=== PATIENT | male | born 1970 | race American Indian/Alaskan Native ===

== ENCOUNTER 2017-01-15 20:51 | Inpatient (IN) | payer MEDICAID ==
--- NOTE | 2017-01-15 21:40 | C.PDOC ---
History Of Present Illness Patient is a 46 year old male who presents to the ER with a complaint of feeling suicidal. Patient denies physical complaints at this time. Chief Complaint (Nursing): Psychiatric Evaluation History Per: Patient History/Exam Limitations: no limitations Onset/Duration Of Symptoms: Hrs Current Symptoms Are (Timing): Still Present Suicide/Self Injury Attempted (Context): None Modifying Factor(s): None Associated Symptoms: Depression, Suicidal Thoughts. denies: Suicidal Plan Involuntary Hold By: None Recent travel outside of the [place]: No Past Medical History Reviewed: Historical Data, Nursing Documentation, Vital Signs Vital Signs: Last Vital Signs Temp 98.8 F 01/15/17 21:15 Pulse 80 01/15/17 21:15 Resp 14 01/15/17 21:15 BP 124/78 01/15/17 21:15 Pulse Ox - Medical History PMH: Asthma, CHF, HTN Surgical History: No Surg Hx Family History: States: Unknown Family Hx - Social History Hx Alcohol Use: No Hx Substance Use: Yes - Immunization History Hx Tetanus Toxoid Vaccination: No Hx Influenza Vaccination: No Hx Pneumococcal Vaccination: No Review Of Systems Constitutional: Negative for: Fever, Chills Gastrointestinal: Negative for: Nausea, Vomiting, Diarrhea Psych: Positive for: Depression, Suicidal ideation Physical Exam - Physical Exam Appears: Non-toxic, Other (In tears) Skin: Normal Color, Warm, Dry Head: Atraumatic, Normacephalic Eye(s): bilateral: Normal Inspection, EOMI Oral Mucosa: Moist Chest: Symmetrical, No Tenderness Cardiovascular: Rhythm Regular, No Murmur Respiratory: Normal Breath Sounds, No Rales, No Rhonchi, No Wheezing Gastrointestinal/Abdominal: Soft, No Tenderness Neurological/Psych: Oriented x3, Normal Speech, Normal Cognition ED Course And Treatment - Laboratory Results Result Diagrams: 01/15/17 22:19 01/15/17 22:19 ECG: Interpreted By Me, Viewed By Me ECG Rhythm: Sinus Rhythm ECG Interpretation: No Acute Changes, Abnormal Interpretation Of ECG: NSR, prolonged QT interval Rate From EC - Radiology CXR: Interpreted by Me CXR Interpretation: Yes: No Acute Disease. No: Infiltrates, Cardiomegaly (no acute pathology) Progress Note: EKG, blood work, CXR and urinalysis ordered. Disposition Discussed With : Erik Gilmore Doctor Will See Patient In The: Hospital Counseled Patient/Family Regarding: Diagnosis - Disposition Disposition: HOSPITALIZED Disposition Time: 00:27 Condition: STABLE - Clinical Impression Clinical Impression: Depression, Heroin abuse - Scribe Statement The provider has reviewed the documentation as recorded by the Scribpatrick Jones All medical record entries made by the Sandrineibe were at my direction and personally dictated by me. I have reviewed the chart and agree that the record accurately reflects my personal performance of the history, physical exam, medical decision making, and the department course for this patient. I have also personally directed, reviewed, and agree with the discharge instructions and disposition.
[2017-01-15 22:24] LABS: BASO % 0.2 % (0.0-2.0); EOS # 0.2 K/uL (0.0-0.7); EOS % 1.2 % (0.0-4.0); HEMATOCRIT 39.3 % (35.0-51.0); LYMPH % 35.2 % (20.0-40.0); MEAN CELL VOLUME 90.5 fL (80.0-94.0); MEAN CORPUSCULAR HGB CONC 33.2 g/dL (33.0-37.0); MEAN PLATELET VOLUME 9.2 fL (7.2-11.7); MONO # 1.2 K/uL (0.0-0.8); MONO % 5.9 % (0.0-10.0); RED CELL DISTRIBUTION WIDTH 13.7 % (11.5-14.5); WHITE BLOOD COUNT 19.9 K/uL (4.8-10.8)
[2017-01-15 22:26] LABS: RBC URINE < 1 /hpf (0-3); URINE BILIRUBIN NEGATIVE (NEGATIVE); URINE COLOR Yellow (YELLOW); URINE GLUCOSE (UA) NORMAL (Normal); URINE KETONE NEGATIVE (NEGATIVE); URINE LEUKOCYTE ESTERASE NEG Leu/uL (Negative); URINE PROTEIN NEGATIVE (NEGATIVE); WBC URINE 4 /hpf (0-5)
[2017-01-15 22:29] LABS: URINE BLOOD NEGATIVE (NEGATIVE)
[2017-01-15 22:32] LABS: CHLORIDE 97 mmol/L (98-107)
[2017-01-15 22:33] LABS: POTASSIUM 3.1 mmol/L (3.6-5.2); SODIUM 136 mmol/L (132-148)
[2017-01-15 22:35] LABS: ALB/GLOB RATIO 1.2 (1.0-2.1); ALKALINE PHOSPHATASE 66 U/L (38-126); AST/SGOT 34 U/L (17-59); BILIRUBIN,TOTAL 0.5 mg/dL (0.2-1.3); BLOOD UREA NITROGEN 12 mg/dL (9-20); CARBON DIOXIDE 26 mmol/L (22-30); GFR AFRICAN-AMERICAN > 60; GLUCOSE,RANDOM 115 mg/dL (75-110); TOTAL PROTEIN 7.5 g/dL (6.3-8.3)
[2017-01-15] MEDS ORDERED: Potassium Chloride 20 mEq/15 ml LIQ UD PO STA (22:35)
[2017-01-15 22:36] LABS: ALCOHOL SERUM < 10 mg/dl (0-10); ALT/SGPT 51 U/L (21-72); CALCIUM 8.8 mg/dl (8.6-10.4)
[2017-01-15] MEDS ORDERED: Potassium Chloride 20 mEq ER Tab PO ONE (23:13)
[2017-01-16] MEDS ORDERED: Albuterol HFA 90 mcg/actuation (8 g) INH PRN (05:33)
[2017-01-16] MEDS ORDERED: Potassium Chloride 20 mEq ER Tab PO ONE (11:46)
--- NOTE | 2017-01-16 11:51 | CP.PCM.CON ---
<Tonya Santo - Last Filed: 01/16/17 13:14> History of Present Illness - History of Present Illness History of Present Illness: Medicine Consult note for Dr. Sotelo Reason for consult: Vomiting CC: I can't stop vomiting HPI: Patient is a 46 year old AA male PMHx of HTN, DM2, CHF, Hypercholesterolemia who presented to the ED on 01/15 with suicidal ideations. Patient reported feeling suicidal as he was unable to satisfy his . He also complained of nausea and vomiting over the past 2 days. He stated he has been vomiting mostly yellow liquid and food for the past 2 days ~4times/day and when [facility] he has been having bilious nonbloody emesis all morning ~4 to 5 times. He denies any diarrhea but also reports he has been constipated for 2 days. He is complaining of intermittent abdominal pain in the middle of his abdomen that also started 2 days ago. He describes it as dull and cramping. He also complaints of some lightheadedness, chills, diaphoresis, and a burning pain in his Right thigh that comes and goes. Patient denied any acute chest pain, palpitations, SOB, cough, swelling of his legs b/l, sick contacts, recent travel. Patient reported that he was using methadone up to 150mg 1 months ago and he stopped it suddenly without tapering it off as he misunderstood his dental technologist's recommendations as he was having prolonged QT interval. Patient reported that he started taking 100mg methadone again 1 week ago and was also snorting 10bags/day of heroin. His last use of heroin and methadone was the day of admission where he snorted 6 bags heroin. Patient states he has been using a combination fo methadone and heroin for months. Patient also disclosed he has been following Dr. Toro in [facility] [place] for his CHF. He states in Jul 2015 he was unable to even complete a stress test due to "blocked arteries" and he had a cardiac cath done and a stent placed in January 2016. PMD: Dr. Hernandez Wire Lather: Dr. 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 absent: Fever, Headache - EENT Eyes: As Per HPI. absent: Change in Vision Ears: As Per HPI. absent: Dizziness Nose/Mouth/Throat: As Per HPI. absent: Nasal Congestion, Sore Throat - Cardiovascular Cardiovascular: As Per HPI. absent: Chest Pain, Dyspnea, Edema, Leg Edema, Palpitations - Respiratory Respiratory: As Per HPI. absent: Cough, Hemoptysis, Dyspnea on Exertion, Wheezing, Chest Congestion - Gastrointestinal Gastrointestinal: As Per HPI, Abdominal Pain, Constipation, Heartburn, Nausea, Vomiting. absent: Coffee Ground Emesis, Diarrhea, Dysphagia, Hematemesis - Genitourinary Genitourinary: As Per HPI. absent: Dysuria, Pyuria, Nocturia - Musculoskeletal Musculoskeletal: As Per HPI. absent: Back Pain, Numbness, Tingling - Integumentary Integumentary: As Per HPI. absent: Dry Skin, Rash - Neurological Neurological: As Per HPI. absent: Numbness, Focal Weakness, Headaches, Tingling - Psychiatric Psychiatric: As Per HPI, Anxiety, Depression, Suicidal Ideation. absent: Hallucinations, Homicidal Ideation, Visual Hallucinations - Endocrine Endocrine: As Per HPI. absent: Palpitations, Polydipsia, Polyphagia, Polyuria - Hematologic/Lymphatic Hematologic: As Per HPI. absent: Easy Bleeding, Easy Bruising, Lymphadenopathy Past Patient History - Infectious Disease Hx of Infectious Diseases: None - Past Social History Smoking Status: Heavy Smoker > 10 Cigarettes Daily - CARDIAC Hx Congestive Heart Failure: Yes Hx Hypertension: Yes - PULMONARY Hx Asthma: Yes - NEUROLOGICAL HX Cerebrovascular Accident: No Hx Seizures: No - ENDOCRINE/METABOLIC Hx Diabetes Mellitus Type 1: Yes - HEMATOLOGICAL/ONCOLOGICAL Hx Cancer: No Hx Human Immunodeficiency Virus (HIV): No - GENITOURINARY/GYNECOLOGICAL Hx Sexually Transmitted Disorders: No - PSYCHIATRIC Hx Substance Use: Yes - SURGICAL HISTORY Hx Surgeries: No Meds Allergies/Adverse Reactions: Allergies Allergy/AdvReac Type Severity Reaction Status Date / Time cheese Allergy Verified 01/15/17 21:26 shrimp Allergy Verified 01/15/17 21:26 - Medications Medications: Current Medications Albuterol (Ventolin Hfa 90 Mcg/Actuation (8 G)) 1 puff INH RQ6 PRN PRN Reason: Shortness of Breath Ondansetron HCl (Zofran Tab) 4 mg PO Q6H PRN PRN Reason: Nausea/Vomiting Last Admin: 01/16/17 08:19 Dose: 4 mg Trazodone HCl (Desyrel) 100 mg PO HS PRN PRN Reason: Insomnia Last Admin: 01/16/17 02:01 Dose: 100 mg Physical Exam - Constitutional Appears: In Acute Distress - Head Exam Head Exam: ATRAUMATIC, NORMAL INSPECTION, NORMOCEPHALIC - Eye Exam Eye Exam: EOMI, Normal appearance, PERRL. absent: Conjunctival injection, Scleral icterus Pupil Exam: NORMAL ACCOMODATION - ENT Exam ENT Exam: Mucous Membranes Dry - Neck Exam Neck exam: Positive for: Full Rom, Normal Inspection. Negative for: Tenderness - Respiratory Exam Respiratory Exam: Clear to Auscultation Bilateral, NORMAL BREATHING PATTERN. absent: Accessory Muscle Use, Rales, Rhonchi, Wheezes, Respiratory Distress - Cardiovascular Exam Cardiovascular Exam: REGULAR RHYTHM, RRR, +S1, +S2. absent: Systolic Murmur - GI/Abdominal Exam GI & Abdominal Exam: Normal Bowel Sounds, Soft. absent: Firm, Guarding, Rebound , Rigid, Tenderness Additional comments: bilious and yellow emesis noted in bedside marsh - Extremities Exam Extremities exam: Positive for: normal capillary refill, normal inspection, pedal pulses present. Negative for: pedal edema, tenderness - Back Exam Back exam: NORMAL INSPECTION. absent: rash noted, tenderness - Neurological Exam Neurological exam: Alert, Oriented x3 - Psychiatric Exam Psychiatric exam: Anxious, Depressed - Skin Skin Exam: Diaphoretic, Intact, Normal Color, Warm Results - Vital Signs Recent Vital Signs: Last Vital Signs Temp 98.6 F 01/16/17 11:37 Pulse 72 01/16/17 11:37 Resp 18 01/16/17 11:37 BP 114/66 01/16/17 11:37 Pulse Ox 99 01/16/17 11:37 - Labs Result Diagrams: 01/15/17 22:19 01/16/17 11:42 Labs: Laboratory Results - last 24 hr 01/16/17 08:00 POC Glucose (mg/dL) 124 H Assessment & Plan - Assessment and Plan (Free Text) Assessment: 46 year old AA male PMHx of HTN, DM2, CHF, Hypercholesterolemia who presented to the ED on 01/15 with suicidal ideations. Medicine consult for intractable vomiting Plan: Intractable nausea and vomiting -Likely secondary to methadone/heroin withdrawal -NPO except ice chips -Protonix 40mg IVP daily -Zofran 4mg IVP Q6H PRN nausea/vomiting -D5NS @ 100cc/hr -amylase: 58 -lipase: 59 -f/u x-ray abdomen Prolonged QT interval -seen on EKG on admission -likely secondary to methadone -Monitor with daily EKG -Dr. Almaraz consulted cardiology Hypokalemia -K+ on admission 3.1 -repleted -monitor Leukocytosis -WBC 19.9 on admission -likely reactionary CHF -f/u Echo -BNP: 103 -monitor Is and Os -measure daily weights -Dr. Almaraz consulted cardiology HTN -home meds on hold as patient is vomiting: Lisinopril 20mg po daily, Toprol xl 100mg 2 tab bid -home med on hold as patient at risk for hematemesis secondary to MW tears secondary to intractable vomiting: ASA 81mg po daily -BP currently controlled -Monitor -f/u TSH and free T4 DM2 -home meds metformin on hold -Accucheck ACHS -RISS low dose -D5NS @ 100cc/hr -f/u HgbA1c Hypercholesterolemia -home med on hold: Atorvastatin 40mg po hs -hold Crestor 10mg po hs until patient stops vomiting -f/u Lipid panel Opioid and methadone abuse -Managed as per psych -Trazodone 100mg po hs PPX -SCDs -NPO except ice chips -Protonix 40mg ivp daily -hold VTE ppx as patient is at risk of hematemesis secondary to MW tears secondary to intractable vomiting -1:1 suicide watch -monitor Is and Os -measure daily weights Plan discussed with Dr. Ashleigh Santo PGY1 <Estephania Sotelo V - Last Filed: 01/16/17 19:45> Meds - Medications Medications: Current Medications Dextrose/Sodium Chloride (Dextrose 5%/0.9% Ns 1000 Ml) 1,000 mls @ 100 mls/hr IV .Q10H ONE Stop: 01/16/17 22:29 Last Admin: 01/16/17 17:00 Dose: 100 mls/hr Insulin Aspart (Novolog) 0 unit SC ACHS SAY PRN Reason: Protocol Ondansetron HCl (Zofran Inj) 4 mg IVP Q6H PRN PRN Reason: Nausea/Vomiting Pantoprazole Sodium (Protonix Inj) 40 mg IVP DAILY SAY Trazodone HCl (Desyrel) 100 mg PO HS PRN PRN Reason: Insomnia Last Admin: 01/16/17 02:01 Dose: 100 mg Results - Vital Signs Recent Vital Signs: Last Vital Signs Temp 97.9 F 01/16/17 15:06 Pulse 65 01/16/17 15:06 Resp 20 01/16/17 15:06 BP 172/93 H 01/16/17 15:06 Pulse Ox 96 01/16/17 15:06 - Labs Result Diagrams: 01/15/17 22:19 01/16/17 11:42 Labs: Laboratory Results - last 24 hr 01/16/17 01/16/17 01/16/17 08:00 11:42 12:06 Sodium 138 Potassium 3.9 Chloride 98 Carbon Dioxide 27 Anion Gap 16 BUN 10 Creatinine 1.0 Est GFR ( Amer) > 60 Est GFR (Non-Af Amer) > 60 POC Glucose (mg/dL) 124 H 132 H Random Glucose 145 H Calcium 9.2 Phosphorus 3.0 Magnesium 2.2 Total Bilirubin 0.9 AST 36 ALT 52 Alkaline Phosphatase 81 Total Protein 7.8 Albumin 4.3 Globulin 3.5 Albumin/Globulin Ratio 1.2 Amylase 58 Lipase 59 01/16/17 16:38 Sodium Potassium Chloride Carbon Dioxide Anion Gap BUN Creatinine Est GFR ( Amer) Est GFR (Non-Af Amer) POC Glucose (mg/dL) 161 H Random Glucose Calcium Phosphorus Magnesium Total Bilirubin AST ALT Alkaline Phosphatase Total Protein Albumin Globulin Albumin/Globulin Ratio Amylase Lipase Attending/Attestation - Attestation I have personally seen and examined this patient.: Yes I have fully participated in the care of the patient.: Yes I have reviewed all pertinent clinical information: Yes Notes (Text): Patient seen, examined and case discussed with day-time resident. Medicine consulted for intractable nausea and vomiting. Patient reports significant methadone use coinciding with his heroin use. Patient reports he has been vomitting multiple times since last night. Patient reports use to go to a methadone clinic maintenance but quit about a month ago cold turkey, because he was told by his heart doctor that is affecting his heart. Patient is heavy heroin user and on high methadone use. Patient denies chest pain, denies palpitations, denies shortness of breathe, associates abdominal pain only with vomitting, nonbloody, and denies change in stool. Patient has green-yellow vomitus at bedside to support. Patient transferred to telemetry from [facility], will monitor on telemetry and try control nausea and vomitting in light of withdrawal. Hold PO meds; if patient continues to have nausea, may need NGT tube. Assessment/Plan (with Clarifications) 1) Intractable nausea and vomiting -Likely secondary to methadone/heroin withdrawal -NPO except ice chips -Protonix 40mg IVP daily -Zofran 4mg IVP Q6H PRN nausea/vomiting -D51/2NS @ 50cc/hr -Ordered for amylase: 58 and lipase: 59 -f/u x-ray abdomen pending 2) Prolonged QT interval -seen on EKG on admission -likely secondary to methadone -Monitor with daily EKG -Dr. Almaraz consulted cardiology -Transferred to telemetry to monitor prolonged QT and further arrhythmias 3) Hypokalemia -K+ on admission 3.1 -Mg2+ within normal limits -monitor 4) Leukocytosis -WBC 19.9 on admission -Will repeat CBC tomorrow -Post-inflammatory vs dehydration 5) Chronic Diastolic CHF -f/u Echo -BNP: 103 -monitor Is and Os -measure daily weights -Dr. Almaraz consulted cardiology -Iv fluids: D51/2NS 75cc/hr -Given patient is vomitting: held Lisinopril and Toprol Xl 100mg PO meds -If Abdominal xray negative, and continues to vomit may need NGT tube 6)Hypertension -home meds on hold as patient is vomiting: Lisinopril 20mg po daily, Toprol xl 100mg 2 tab bid -home med ASA; patient's hemoglobin is stable, patient is vomitting with associated abdominal pain, if improves, will continue tomorrow -IV fluids 75cc/hr -Hydralazine 10 IVP Q 6hour PRN SBP>160 -Monitor DM2 -home meds metformin on hold -Accucheck ACHS -RISS low dose -D51/2NS @ 50cc/hr -f/u HgbA1c Hypercholesterolemia -home med on hold: Atorvastatin 40mg po hs -hold Crestor 10mg po hs until patient vomitting subsides; may need NGT tube if persists -f/u Lipid panel Opioid and methadone abuse -Managed as per psych -Trazodone 100mg po hs PPX -SCDs -NPO except ice chips -Protonix 40mg ivp daily -hold VTE ppx; will reassess in the morning given patient is throwing up -Patient is ambulatory -1:1 suicide watch -monitor Is and Os -measure daily weights
[2017-01-16 12:05] LABS: CHLORIDE 98 mmol/L (98-107)
[2017-01-16 12:06] LABS: POTASSIUM 3.9 mmol/L (3.6-5.2); SODIUM 138 mmol/L (132-148)
[2017-01-16 12:08] LABS: ALB/GLOB RATIO 1.2 (1.0-2.1); ALKALINE PHOSPHATASE 81 U/L (38-126); AST/SGOT 36 U/L (17-59); BILIRUBIN,TOTAL 0.9 mg/dL (0.2-1.3); BLOOD UREA NITROGEN 10 mg/dL (9-20); CARBON DIOXIDE 27 mmol/L (22-30); GFR AFRICAN-AMERICAN > 60; TOTAL PROTEIN 7.8 g/dL (6.3-8.3)
[2017-01-16 12:09] LABS: ALT/SGPT 52 U/L (21-72); CALCIUM 9.2 mg/dl (8.6-10.4); GLUCOSE,RANDOM 145 mg/dL (75-110)
--- NOTE | 2017-01-16 12:23 | RAD ---
HISTORY: SOB COMPARISON: 06/22/2012. TECHNIQUE: Chest PA and lateral FINDINGS: LUNGS: No active pulmonary disease. PLEURA: No significant pleural effusion identified. No pneumothorax apparent. CARDIOVASCULAR: Normal. OSSEOUS STRUCTURES: No significant abnormalities. VISUALIZED UPPER ABDOMEN: Normal. OTHER FINDINGS: None. IMPRESSION: No active disease. No significant interval change compared to the prior examination(s).
[2017-01-16] MEDS ORDERED: Dextrose 5%/0.9% NS 1,000 ML IV ONE ×2 (12:30→19:36)
[2017-01-16 12:59] LABS: AMYLASE 58 U/L (30-110); MAGNESIUM 2.2 mg/dL (1.6-2.3)
[2017-01-16] MEDS: (Novolog) Insulin Aspart, Recombinant 100 u/ml 10 ml vial SC SCH ×2 (17:30→21:18)
[2017-01-16 18:07] VITALS: RESP 20
[2017-01-16] MEDS: Dextrose 5%/0.45% NS 1,000 ML IV SCH (21:23)
[2017-01-17] MEDS: (Novolog) Insulin Aspart, Recombinant 100 u/ml 10 ml vial SC SCH ×4 (08:00→22:11)
--- NOTE | 2017-01-17 08:04 | CP.PCM.PN ---
<HansaTonya - Last Filed: 01/17/17 12:27> Subjective - Date & Time of Evaluation Date of Evaluation: 01/17/17 Time of Evaluation: 07:15 - Subjective Subjective: PGY1 Medicine note for Dr. Sotelo Patient seen and examined at bedside. Patient reported feeling better this AM and wanted to eat. He reports only one episode of vomiting overnight which was more just frothy sputum rather than food contents as he had the day before. Patient denied headache, dizziness, chest pain, palpitations, SOB, cough, abd pain, nausea, vomiting, diarrhea, pain/swelling in his legs bilaterally. Patient reports he still has not had a BM and wants something to help him. As per nursing and 1:1 patient had no acute events overnight. Objective - Vital Signs/Intake and Output Vital Signs (last 24 hours): Temp Pulse Resp BP Pulse Ox 98.7 F 96 H 20 171/115 H 99 01/17/17 07:23 01/17/17 07:23 01/17/17 07:23 01/17/17 07:23 01/17/17 07:23 Intake and Output: 01/17/17 01/17/17 06:59 18:59 Intake Total 700 Balance 700 - Medications Medications: Current Medications Hydralazine HCl (Apresoline) 10 mg IVP Q6H PRN PRN Reason: Systolic Blood Pressure Last Admin: 01/17/17 05:42 Dose: 10 mg Dextrose/Sodium Chloride (Dextrose 5%/0.45% Ns 1000 Ml) 1,000 mls @ 50 mls/hr IV .Q20H [facility] Last Admin: 01/16/17 21:23 Dose: 50 mls/hr Insulin Aspart (Novolog) 0 unit SC ACHS SAY PRN Reason: Protocol Last Admin: 01/16/17 21:18 Dose: Not Given Ondansetron HCl (Zofran Inj) 4 mg IVP Q6H PRN PRN Reason: Nausea/Vomiting Last Admin: 01/16/17 21:20 Dose: 4 mg Pantoprazole Sodium (Protonix Inj) 40 mg IVP DAILY SAY Last Admin: 01/16/17 21:17 Dose: 40 mg Trazodone HCl (Desyrel) 100 mg PO HS PRN PRN Reason: Insomnia Last Admin: 01/16/17 21:33 Dose: 100 mg - Labs Labs: 01/16/17 11:42 - Constitutional Appears: Well, Non-toxic, No Acute Distress - Head Exam Head Exam: ATRAUMATIC, NORMAL INSPECTION, NORMOCEPHALIC - Eye Exam Eye Exam: EOMI, Normal appearance. absent: Conjunctival injection, Scleral icterus - ENT Exam ENT Exam: Mucous Membranes Dry - Neck Exam Neck Exam: Full ROM, Normal Inspection - Respiratory Exam Respiratory Exam: Decreased Breath Sounds (secondary to body habitus), Clear to Ausculation Bilateral, NORMAL BREATHING PATTERN. absent: Accessory Muscle Use, Rales, Rhonchi, Wheezes, Respiratory Distress - Cardiovascular Exam Cardiovascular Exam: REGULAR RHYTHM, RRR, +S1, +S2 - GI/Abdominal Exam GI & Abdominal Exam: Soft, Normal Bowel Sounds. absent: Distended, Firm, Guarding, Rigid, Tenderness - Extremities Exam Extremities Exam: Normal Capillary Refill, Normal Inspection. absent: Pedal Edema, Tenderness - Back Exam Back Exam: NORMAL INSPECTION. absent: rash noted, tenderness - Neurological Exam Neurological Exam: Alert, Awake, Oriented x3 - Psychiatric Exam Psychiatric exam: Anxious - Skin Skin Exam: Dry, Intact, Normal Color, Warm Assessment and Plan - Assessment and Plan (Free Text) Assessment: 46 year old AA male PMHx of HTN, DM2, CHF, Hypercholesterolemia who presented to the ED on 01/15 with suicidal ideations and later intractable vomiting Plan: 1) Intractable nausea and vomiting -Likely secondary to methadone/heroin withdrawal -Protonix 40mg IVP daily -Zofran 4mg IVP Q6H PRN nausea/vomiting -D51/2NS @ 50cc/hr -amylase: 58 and lipase: 59 -x-ray abdomen: unremarkable 2) Prolonged QT interval -seen on EKG on admission -likely secondary to methadone -Monitor with daily EKG -Dr. Almaraz consulted cardiology 3) Hypokalemia -K+ on admission 3.1 -monitor 4) Leukocytosis -WBC 19.9 on admission -16.6 this AM 01/17 -Post-inflammatory vs dehydration 5) Chronic Diastolic CHF -f/u Echo -BNP: 103 -monitor Is and Os -measure daily weights -Dr. Almaraz consulted cardiology -Iv fluids: D51/2NS 50cc/hr -Lisinopril 20mg po daily -Toprol Xl 100mg po daily 6)Hypertension -Lisinopril 20mg po daily -Toprol Xl 100mg po daily -ASA 81mg po daily -IV fluids 50cc/hr -Hydralazine 10 IVP Q 6hour PRN SBP>160 -TSH: 0.43 -Free T4: 0.7 -Monitor DM2 -home meds metformin on hold -Accucheck ACHS -RISS low dose -D51/2NS @ 50cc/hr -HgbA1c f/u Hypercholesterolemia -Crestor 10mg po hs -T -Cholesterol: 223 -LDL: 164 -HDL: 34 Opioid and methadone abuse -Managed as per psych -Trazodone 100mg po hs PPX -SCDs -Heart healthy mod consistent carb diet fluid restricted 1500cc -Protonix 40mg ivp daily -Heparin 5000U SC Q12 -Patient is ambulatory -1:1 suicide watch -monitor Is and Os -daily weights Plan discussed with Dr. Ashleigh Santo PGY1 <Estephania Sotelo V - Last Filed: 01/17/17 22:17> Objective - Vital Signs/Intake and Output Vital Signs (last 24 hours): Temp Pulse Resp BP Pulse Ox 98.7 F 80 20 171/115 H 99 01/17/17 07:23 01/17/17 07:30 01/17/17 07:23 01/17/17 07:23 01/17/17 07:23 Intake and Output: 01/17/17 01/17/17 06:59 18:59 Intake Total 700 Balance 700 - Medications Medications: Current Medications Aspirin (Aspirin Chewable) 81 mg PO DAILY [facility] Heparin Sodium (Porcine) (Heparin) 5,000 units SC Q12 [facility] Hydralazine HCl (Apresoline) 10 mg IVP Q6H PRN PRN Reason: Systolic Blood Pressure Last Admin: 01/17/17 05:42 Dose: 10 mg Dextrose/Sodium Chloride (Dextrose 5%/0.45% Ns 1000 Ml) 1,000 mls @ 50 mls/hr IV .Q20H [facility] Last Admin: 01/16/17 21:23 Dose: 50 mls/hr Insulin Aspart (Novolog) 0 unit SC ACHS [facility] PRN Reason: Protocol Last Admin: 01/17/17 08:00 Dose: 2 unit Lisinopril (Zestril) 20 mg PO DAILY [facility] Last Admin: 01/17/17 10:01 Dose: 20 mg Metoprolol Succinate (Toprol Xl) 100 mg PO DAILY [facility] Last Admin: 01/17/17 10:01 Dose: 100 mg Ondansetron HCl (Zofran Inj) 4 mg IVP Q6H PRN PRN Reason: Nausea/Vomiting Last Admin: 01/16/17 21:20 Dose: 4 mg Pantoprazole Sodium (Protonix Inj) 40 mg IVP DAILY [facility] Last Admin: 01/17/17 09:19 Dose: 40 mg Rosuvastatin Calcium (Crestor) 10 mg PO HS [facility] Trazodone HCl (Desyrel) 100 mg PO HS PRN PRN Reason: Insomnia Last Admin: 01/16/17 21:33 Dose: 100 mg - Labs Labs: 01/17/17 07:43 01/17/17 07:43 Attending/Attestation - Attestation I have personally seen and examined this patient.: Yes I have fully participated in the care of the patient.: Yes I have reviewed all pertinent clinical information, including history, physical exam and plan: Yes Notes (Text): Patient seen, examined, and case discussed with day-time resident. Patient seen this morning. Patient reports nausea and vomiting have improved compared to yesterday. Patient appears more comfortable. Patient denies acute distress. Patient has not had bowel movement today. Will restart patient's PO home medications since his nausea and vomiting have subsided. 1) Intractable nausea and vomiting -Likely secondary to methadone/heroin withdrawal -Protonix 40mg IVP daily -Zofran 4mg IVP Q6H PRN nausea/vomiting -D51/2NS @ 50cc/hr -amylase: 58 and lipase: 59 -x-ray abdomen: unremarkable 2) Prolonged QT interval -seen on EKG on admission -likely secondary to methadone -Monitor with daily EKG -Dr. Almaraz consulted cardiology 3) Hypokalemia -K+ on admission 3.4-->replete -monitor 4) Leukocytosis -WBC 19.9 on admission -16.6 this AM 01/17 -Post-inflammatory vs dehydration 5) Chronic Diastolic CHF -f/u Echo -BNP: 103 -monitor Is and Os -measure daily weights -Dr. Almaraz consulted cardiology -Iv fluids: D51/2NS 50cc/hr -Lisinopril 20mg po daily -Toprol Xl 100mg po daily -Aspirin 81mg PO daily -Crestor 10mg POqHS -Brilinta 90mg PO daily 6)Hypertension -Lisinopril 20mg po daily -Toprol Xl 100mg po daily -IV fluids 50cc/hr -Hydralazine 10 IVP Q 6hour PRN SBP>160 -monitor Blood pressure -influenced by withdrawal 7) DM2 -home meds metformin on hold -Accucheck ACHS -RISS low dose -HgbA1c f/u 8) Hypercholesterolemia -Crestor 10mg po hs -T -Cholesterol: 223 -LDL: 164 -HDL: 34 9) Opioid and methadone abuse -Managed as per psych -Trazodone 100mg po hs 10) PPX -SCDs -Heart healthy mod consistent carb diet fluid restricted 1500cc -Protonix 40mg ivp daily -Heparin 5000U SC Q12 -Patient is ambulatory -1:1 suicide watch -monitor Is and Os -daily weights
[2017-01-17 08:11] LABS: BASO # 0.1 K/uL (0.0-0.2); BASO % 0.6 % (0.0-2.0); CHLORIDE 94 mmol/L (98-107); EOS % 0.3 % (0.0-4.0); HEMATOCRIT 42.1 % (35.0-51.0); LYMPH # 3.7 K/uL (1.0-4.3); LYMPH % 22.3 % (20.0-40.0); MEAN CELL VOLUME 88.9 fL (80.0-94.0); MEAN CORPUSCULAR HEMOGLOBIN 30.3 pg (27.0-31.0); MEAN CORPUSCULAR HGB CONC 34.1 g/dL (33.0-37.0); MEAN PLATELET VOLUME 10.2 fL (7.2-11.7); MONO # 1.2 K/uL (0.0-0.8); MONO % 7.2 % (0.0-10.0); POTASSIUM 3.4 mmol/L (3.6-5.2); RED CELL DISTRIBUTION WIDTH 13.9 % (11.5-14.5); SODIUM 134 mmol/L (132-148); WHITE BLOOD COUNT 16.6 K/uL (4.8-10.8)
[2017-01-17 08:13] LABS: ALB/GLOB RATIO 1.2 (1.0-2.1); ALKALINE PHOSPHATASE 85 U/L (38-126); AST/SGOT 34 U/L (17-59); BLOOD UREA NITROGEN 8 mg/dL (9-20); CARBON DIOXIDE 26 mmol/L (22-30); CHOLESTEROL 223 mg/dL (0-199); GFR AFRICAN-AMERICAN > 60; TOTAL PROTEIN 8.2 g/dL (6.3-8.3)
[2017-01-17 08:14] LABS: ALT/SGPT 47 U/L (21-72); CALCIUM 9.3 mg/dl (8.6-10.4); GLUCOSE,RANDOM 141 mg/dL (75-110); MAGNESIUM 2.1 mg/dL (1.6-2.3); PHOSPHOROUS 3.3 mg/dL (2.5-4.5)
[2017-01-17 08:40] LABS: THYROID STIMULATING HORMONE 0.43 mIU/L (0.46-4.68)
--- NOTE | 2017-01-17 09:19 | RAD ---
HISTORY: pain, nausea, vomiting COMPARISON: No prior. FINDINGS: BOWEL: Normal. No obstruction. No free air. Constipation without fecal impaction or obstruction. BONES: Normal. OTHER FINDINGS: None. IMPRESSION: No acute findings related to/accounting for the clinical presentation.
[2017-01-17] MEDS: Metoprolol Succinate 100 mg XL Tab PO SCH (10:01)
[2017-01-17] MEDS: Dextrose 5%/0.45% NS 1,000 ML IV SCH (16:00)
--- NOTE | 2017-01-17 18:03 | PCM.PSYCH ---
Initial Psychiatric Evaluation - Initial Psychiatric Evaluation Type of Admission: Voluntary Legal Status: Capacity Chief Complaint (in patient's own words): I was suicidal, wanted to kill myself by overdose on my medications. History of Present Illness and Precipitating Events: Patient is a 46 years old, , self-employed, -Spanish male with no previous psychiatric history but history of opiate use was admitted to psych floor for suicidal ideations with plan to overdose with his medications. Patient was transferred to medical floor because of persistent vomiting. Psych consult was called to evaluate the patient. Patient reported he is feeling depressed for last 4-5 months as he cannot satisfy his because of his medical problems. Denied any problem with sleep or appetite. Reported he had suicidal ideations at times for last for 5 months. Reported 2 days ago he was suicidal with plan to overdose on his medications and he came to the hospital for help. No previous suicidal attempts or any homicidal ideations. Patient denied any psychotic manic or anxiety symptoms. No visit to any psychiatrist in the past but reported that one year ago he had similar symptoms and he went to his PCP. Heroine: Started using at the age of 16 years, is gradually. Currently he was using 8-10 bags daily for last 2 years, sniffing. Last use was 2 days ago , 7 bags. Patient reported that he was also getting methadone 150 mg from methadone maintenance treatment program. Reported he was going to [facility]. Patient reported that he was using harrowing and methadone together. Denied use of any other drugs including alcohol cocaine or cannabis. His urine drug screen was positive for cocaine. 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 He is , has 2 children 10 and 11 years old who live with their mother. Patient smokes half pack of cigarettes daily. His height is 5 feet 11 inches and weight is 270 pounds. Current Medications: Active Medications Generic Name Dose Route Start Last Admin Trade Name Freq PRN Reason Stop Dose Admin Aspirin 81 mg 01/17/17 12:30 01/17/17 15:18 Aspirin Chewable PO 81 mg DAILY SAY Administration Clonidine HCl 0.1 mg 01/17/17 16:14 Catapres PO Q6 PRN opioid withdrawal Heparin Sodium (Porcine) 5,000 units 01/17/17 22:00 Heparin SC Q12 [facility] Hydralazine HCl 10 mg 01/16/17 19:36 01/17/17 05:42 Apresoline IVP 10 mg Q6H PRN Administration Systolic Blood Pressure Dextrose/Sodium Chloride 1,000 mls @ 50 mls/hr 01/16/17 19:45 01/16/17 21:23 Dextrose 5%/0.45% Ns 1000 Ml IV 50 mls/hr .Q20H SAY Administration Insulin Aspart 0 unit 01/16/17 16:30 01/17/17 16:40 Novolog SC Not Given ACHS SAY Protocol Lisinopril 20 mg 01/17/17 10:00 01/17/17 10:01 Zestril PO 20 mg DAILY SAY Administration Metoprolol Succinate 100 mg 01/17/17 10:00 01/17/17 10:01 Toprol Xl PO 100 mg DAILY SAY Administration Ondansetron HCl 4 mg 01/16/17 12:30 01/16/17 21:20 Zofran Inj IVP 4 mg Q6H PRN Administration Nausea/Vomiting Pantoprazole Sodium 40 mg 01/16/17 12:45 01/17/17 09:19 Protonix Inj IVP 40 mg DAILY SAY Administration Rosuvastatin Calcium 10 mg 01/17/17 22:00 Crestor PO HS SAY Trazodone HCl 100 mg 01/16/17 01:29 01/16/17 21:33 Desyrel PO 100 mg HS PRN Administration Insomnia Past Psychiatric History - Past Psychiatric History Previous Treatment History: None History of Abuse: None reported History of ETOH/Drug Use: See HPI History of Family Illness: None reported Pertinent Medical Hx (Current Medical&Sleep Prob, Allergies): Allergies Allergy/AdvReac Type Severity Reaction Status Date / Time cheese Allergy Verified 01/15/17 21:26 shrimp Allergy Verified 01/15/17 21:26 Aspirin 1 tab PO DAILY 01/15/17 Atorvastatin [Lipitor] 1 tab PO HS 01/15/17 Lisinopril [Zestril] 20 mg PO DAILY 01/15/17 Metformin ER [Glucophage XR] 1 tab PO DAILY 01/15/17 Metoprolol Succinate [Toprol XL] 2 tab PO BID 01/15/17 Ticagrelor [Brilinta] 1 tab PO DAILY 01/15/17 Diabetes mellitus Hypertension Hypercholesterolemia CHF Review of Systems - Psychiatric Psychiatric: Depression Mental Status Examination - Personal Presentation Personal Presentation: Looks older than stated age - Affect Affect: Depressed - Motor Activity Motor Activity: Calm - Reliability in Providing Information Reliability in Providing Information: Fair - Speech Speech: Organized - Mood Mood: Depressed - Formal Thought Process Formal Thought Process: No Impairment - Hallucinations/Delusions Hallucinations: Other (None reported) Delusions: Other - Obsessions/Compulsions Obsessions: None Compulsions: None - Cognitive Functions Orientation: Person, Place, Situation, Time Sensorium: Alert Attention/Concentration: Attentive Abstract Thinking: [place] Estimate of Intelligence: Average Judgement: Intact, as evidence by: Insight regarding need for hospitalization Memory: Recent intact, as evidence by: 3/3 object recall, Remote intact, as evidenced by: Ability to recall historical events - Risk Risk: Withdrawal, Diminished functioning - Strength & Assets Inventory Strength & Assets Inventory: Family support, Employment status, Cooperative - Limitations Limitations: Other DSM 5 DX - DSM 5 DSM 5 Diagnosis: Opiate use disorder severe Opiate withdrawal Cocaine use disorder - Recommended/Plan of Treatment Treatment Recommendations and Plan of Treatment: Patient education Supportive therapy Patient has no withdrawal symptoms from opiate, continue clonidine when necessary No methadone at this time Continue treatment as per medicine
[2017-01-17] MEDS ORDERED: Potassium Chloride 20 mEq ER Tab PO ONE (22:00)
--- NOTE | 2017-01-18 04:32 | CP.PCM.PN ---
<Terrance Neely - Last Filed: 01/18/17 04:32> Subjective - Date & Time of Evaluation Date of Evaluation: 01/18/17 Time of Evaluation: 04:30 - Subjective Subjective: PGY1 Medicine note for Dr. Sotelo Patient seen and examined at bedside. Nursing and 1:1 sitter report no acute events overnight. Patient reported feeling better since admission and denies abdominal pain or vomiting overnight. He reports tolerating small amounts of food and drink without issue. Patient denied headache, dizziness, chest pain, palpitations, SOB, cough, abd pain, nausea, vomiting, diarrhea, pain/swelling in his legs bilaterally. Patient reports not having BM for last three days. Objective - Vital Signs/Intake and Output Vital Signs (last 24 hours): Temp Pulse Resp BP Pulse Ox 98.6 F 60 20 148/85 98 01/17/17 23:05 01/18/17 00:10 01/17/17 23:05 01/17/17 23:05 01/17/17 23:05 Intake and Output: 01/17/17 01/18/17 18:59 06:59 Intake Total 625 Balance 625 - Medications Medications: Current Medications Aspirin (Aspirin Chewable) 81 mg PO DAILY [facility] Last Admin: 01/17/17 15:18 Dose: 81 mg Clonidine HCl (Catapres) 0.1 mg PO Q6 PRN PRN Reason: opioid withdrawal Heparin Sodium (Porcine) (Heparin) 5,000 units SC Q12 [facility] Last Admin: 01/17/17 22:11 Dose: 5,000 units Hydralazine HCl (Apresoline) 10 mg IVP Q6H PRN PRN Reason: Systolic Blood Pressure Last Admin: 01/17/17 05:42 Dose: 10 mg Insulin Aspart (Novolog) 0 unit SC ACHS [facility] PRN Reason: Protocol Last Admin: 01/17/17 22:11 Dose: Not Given Lisinopril (Zestril) 20 mg PO DAILY [facility] Last Admin: 01/17/17 10:01 Dose: 20 mg Metoprolol Succinate (Toprol Xl) 100 mg PO DAILY [facility] Last Admin: 01/17/17 10:01 Dose: 100 mg Ondansetron HCl (Zofran Inj) 4 mg IVP Q6H PRN PRN Reason: Nausea/Vomiting Last Admin: 01/16/17 21:20 Dose: 4 mg Pantoprazole Sodium (Protonix Inj) 40 mg IVP DAILY [facility] Last Admin: 01/17/17 09:19 Dose: 40 mg Rosuvastatin Calcium (Crestor) 10 mg PO HS [facility] Last Admin: 01/17/17 22:10 Dose: 10 mg Ticagrelor (Brilinta) 90 mg PO DAILY [facility] Trazodone HCl (Desyrel) 100 mg PO HS PRN PRN Reason: Insomnia Last Admin: 01/17/17 22:11 Dose: 100 mg - Labs Labs: 01/17/17 07:43 01/17/17 07:43 - Constitutional Appears: Non-toxic, No Acute Distress - Head Exam Head Exam: ATRAUMATIC, NORMOCEPHALIC - Eye Exam Eye Exam: EOMI Pupil Exam: PERRL - ENT Exam ENT Exam: Normal Exam - Neck Exam Neck Exam: Normal Inspection - Respiratory Exam Respiratory Exam: Decreased Breath Sounds (body habitus), Clear to Ausculation Bilateral - Cardiovascular Exam Cardiovascular Exam: REGULAR RHYTHM, +S1, +S2 - GI/Abdominal Exam GI & Abdominal Exam: Soft, Normal Bowel Sounds - Extremities Exam Extremities Exam: Normal Capillary Refill, Normal Inspection - Back Exam Back Exam: absent: CVA tenderness (L), CVA tenderness (R) - Neurological Exam Neurological Exam: Alert, Awake, Oriented x3 - Psychiatric Exam Psychiatric exam: Normal Affect - Skin Skin Exam: Normal Color, Warm Assessment and Plan - Assessment and Plan (Free Text) Assessment: 46 year old AA male PMHx of HTN, DM2, CHF, Hypercholesterolemia who presented to the ED on 01/15 with suicidal ideations and later intractable vomiting which has since improved. Plan: Intractable nausea and vomiting -Likely secondary to methadone/heroin withdrawal -Protonix 40mg IVP daily -Zofran 4mg IVP Q6H PRN nausea/vomiting -D51/2NS Discontinued, pt eating -x-ray abdomen: unremarkable Prolonged QT interval -seen on EKG on admission -likely secondary to methadone -Monitor with daily EKG -Dr. Almaraz consulted cardiology Hypokalemia -f/u AM K+ -monitor Leukocytosis - f/u AM CBC -WBC 19.9 on admission -16.6 this AM 01/17 -Post-inflammatory vs dehydration Chronic Diastolic CHF -f/u Echo -BNP: 103 -monitor Is and Os -measure daily weights -Dr. Almaraz consulted cardiology -Iv fluids: D51/2NS 50cc/hr -Lisinopril 20mg po daily -Toprol Xl 100mg po daily 6)Hypertension -Lisinopril 20mg po daily -Toprol Xl 100mg po daily -ASA 81mg po daily -IV fluids 50cc/hr -Hydralazine 10 IVP Q 6hour PRN SBP>160 -TSH: 0.43 -Free T4: 0.7 -Monitor DM2 -home meds metformin on hold -Accucheck ACHS -RISS low dose -D51/2NS @ 50cc/hr -HgbA1c f/u Hypercholesterolemia -Crestor 10mg po hs -T -Cholesterol: 223 -LDL: 164 -HDL: 34 Opioid and methadone abuse -Managed as per psych -Trazodone 100mg po hs PPX -SCDs -Heart healthy mod consistent carb diet fluid restricted 1500cc -Protonix 40mg ivp daily -Heparin 5000U SC Q12 -Patient is ambulatory -1:1 suicide watch -monitor Is and Os -daily weights Plan discussed with Dr. Ashleigh Santo PGY1 <Estephania Sotelo V - Last Filed: 01/18/17 11:48> Objective - Vital Signs/Intake and Output Vital Signs (last 24 hours): Temp Pulse Resp BP Pulse Ox 98.4 F 89 20 129/86 100 01/18/17 09:30 01/18/17 09:30 01/18/17 09:30 01/18/17 09:30 01/18/17 09:30 Intake and Output: 01/18/17 01/18/17 06:59 18:59 Intake Total 625 Balance 625 - Medications Medications: Current Medications Aspirin (Aspirin Chewable) 81 mg PO DAILY [facility] Last Admin: 01/18/17 10:36 Dose: 81 mg Clonidine HCl (Catapres) 0.1 mg PO Q6 PRN PRN Reason: opioid withdrawal Last Admin: 01/18/17 05:41 Dose: 0.1 mg Docusate Sodium (Colace) 100 mg PO BID [facility] Last Admin: 01/18/17 10:34 Dose: 100 mg Heparin Sodium (Porcine) (Heparin) 5,000 units SC Q12 [facility] Last Admin: 01/18/17 10:34 Dose: 5,000 units Hydralazine HCl (Apresoline) 10 mg IVP Q6H PRN PRN Reason: Systolic Blood Pressure Last Admin: 01/17/17 05:42 Dose: 10 mg Insulin Aspart (Novolog) 0 unit SC ACHS [facility] PRN Reason: Protocol Last Admin: 01/18/17 07:30 Dose: Not Given Lisinopril (Zestril) 20 mg PO DAILY [facility] Last Admin: 01/18/17 10:34 Dose: 20 mg Metoprolol Succinate (Toprol Xl) 100 mg PO DAILY [facility] Last Admin: 01/18/17 10:34 Dose: 100 mg Ondansetron HCl (Zofran Inj) 4 mg IVP Q6H PRN PRN Reason: Nausea/Vomiting Last Admin: 01/16/17 21:20 Dose: 4 mg Pantoprazole Sodium (Protonix Inj) 40 mg IVP DAILY [facility] Last Admin: 01/18/17 10:35 Dose: 40 mg Polyethylene Glycol (Miralax) 17 gm PO ONCE ONE Stop: 01/18/17 11:23 Rosuvastatin Calcium (Crestor) 10 mg PO HS [facility] Last Admin: 01/17/17 22:10 Dose: 10 mg Ticagrelor (Brilinta) 90 mg PO DAILY [facility] Last Admin: 01/18/17 10:35 Dose: 90 mg Trazodone HCl (Desyrel) 100 mg PO HS PRN PRN Reason: Insomnia Last Admin: 01/17/17 22:11 Dose: 100 mg - Labs Labs: 01/18/17 07:46 01/18/17 07:46 Attending/Attestation - Attestation I have personally seen and examined this patient.: Yes I have fully participated in the care of the patient.: Yes I have reviewed all pertinent clinical information, including history, physical exam and plan: Yes Notes (Text): Patient seen, examined, and case discussed with day-time resident. Patient seen this morning with at bedside. Patient permits me to speak in front of his regarding his medical information. Patient denies chest pain, denies fever, denies nausea, denies vomitting, denies abdominal pain, reports constipation, denies dysuria. Discussed with patient's heel emery buffer, Dr Almaraz, reviewed patient's EKG, prior history of prolonged QT. Reviewed UDS with him, which included cocaine, heroin/opiates. He reports he had advised the patient in the past to taper OFF methadone given prior history of prolonged QT. Patient's home cardiac medications resumed including Brilinta. Patient has a history of RCA stent. Per cardio, patient does not need a echocardiogram; has had one recently. Patient has noted constipation on abdominal xray, patient ordered for Miralax to encourage bowel movement. Patient denies fever, denies chills, and white count likely reactive secondary to nausea and vomitting. Patient has no left shift. Patient is medically stable for transfer back to psych. Assessment/Plan 1) Intractable nausea and vomiting -Likely secondary to methadone/heroin withdrawal -Protonix 40mg IVP daily -Zofran 4mg IVP Q6H PRN nausea/vomiting -D51/2NS @ 50cc/hr -amylase: 58 and lipase: 59 -x-ray abdomen: constipation-->ordered for Miralax 2) Prolonged QT interval -seen on EKG on admission -likely secondary to methadone -Monitor with daily EKG -Dr. Almaraz consulted cardiology-->reviewed with cardiology, had advised taper off Metadone in the past, stable 3) Hypokalemia -normalized 4) Leukocytosis -Post-inflammatory, afebrile 5) Chronic Diastolic CHF CAD (RCA Stent) -BNP: 103 -monitor Is and Os -measure daily weights -Dr. Almaraz consulted cardiology; patient has had echocardiogram in office -Lisinopril 20mg po daily -Toprol Xl 100mg po daily -Aspirin 81mg PO daily -Crestor 10mg POqHS -Brilinta 90mg PO daily 6)Hypertension -Lisinopril 20mg po daily -Toprol Xl 100mg po daily -monitor Blood pressure 7) DM2 -home meds metformin on hold -Accucheck ACHS -RISS low dose -HgbA1c: 5.9 (controlled) 8) Hypercholesterolemia -Crestor 10mg po hs -T -Cholesterol: 223 -LDL: 164 -HDL: 34 9) Opioid and methadone abuse -Managed as per psych -Trazodone 100mg po hs 10) PPX -SCDs -Heart healthy mod consistent carb diet fluid restricted 1500cc -Protonix 40mg ivp daily -Heparin 5000U SC Q12 -Patient is ambulatory -1:1 suicide watch -monitor Is and Os -daily weights Disposition: patient is medically stable for transfer back to psych, when bed is available. May reconsult medicine, PRN. Thank you.
[2017-01-18] MEDS: (Novolog) Insulin Aspart, Recombinant 100 u/ml 10 ml vial SC SCH ×4 (07:30→22:30)
[2017-01-18 08:00] LABS: BASO # 0.1 K/uL (0.0-0.2); BASO % 0.7 % (0.0-2.0); EOS # 0.1 K/uL (0.0-0.7); EOS % 0.6 % (0.0-4.0); HEMATOCRIT 42.2 % (35.0-51.0); LYMPH # 4.5 K/uL (1.0-4.3); LYMPH % 25.2 % (20.0-40.0); MEAN CELL VOLUME 89.3 fL (80.0-94.0); MEAN CORPUSCULAR HGB CONC 33.6 g/dL (33.0-37.0); MEAN PLATELET VOLUME 9.5 fL (7.2-11.7); MONO # 1.2 K/uL (0.0-0.8); MONO % 6.7 % (0.0-10.0); NRBC % 0.1 % (0.0-2.0); RED CELL DISTRIBUTION WIDTH 13.3 % (11.5-14.5); WHITE BLOOD COUNT 17.7 K/uL (4.8-10.8)
[2017-01-18 08:11] LABS: CHLORIDE 95 mmol/L (98-107); SODIUM 132 mmol/L (132-148)
[2017-01-18 08:12] LABS: POTASSIUM 4.2 mmol/L (3.6-5.2)
[2017-01-18 08:13] LABS: GFR AFRICAN-AMERICAN > 60
[2017-01-18 08:14] LABS: ALB/GLOB RATIO 1.3 (1.0-2.1); ALKALINE PHOSPHATASE 77 U/L (38-126); ALT/SGPT 46 U/L (21-72); AST/SGOT 28 U/L (17-59); BLOOD UREA NITROGEN 8 mg/dL (9-20); CARBON DIOXIDE 25 mmol/L (22-30); GLUCOSE,RANDOM 129 mg/dL (75-110); PHOSPHOROUS 3.5 mg/dL (2.5-4.5); TOTAL PROTEIN 7.7 g/dL (6.3-8.3)
[2017-01-18 08:15] LABS: CALCIUM 9.1 mg/dl (8.6-10.4); MAGNESIUM 2.2 mg/dL (1.6-2.3)
[2017-01-18] MEDS: Metoprolol Succinate 100 mg XL Tab PO SCH (10:34)
[2017-01-18] MEDS ORDERED: POLYETHYLENE GLYCOL 3350 17 GM/Dose PACKET PO ONE (11:22)
--- NOTE | 2017-01-18 19:36 | PCM.PYCHPN ---
Psychiatric Progress Note - Psychiatric Progress Note Patient seen today, length of contact: 15 minutes Patient Chief Complaint: I'm feeling better. I'm not suicidal anymore. Problems Identified/Issues Discussed: Patient seen. Chart reviewed. Case discussed with the staff. Issues related to illness and treatment were discussed with the patient. Patient reported feeling much better. Patient denied any suicidal ideations or any withdrawal symptoms from opiates or alcohol. Patient reported still having some abdominal discomfort and nausea vomiting. Staff reported compliant with treatment with no adverse affects. At the time of evaluation, patient was awake alert oriented 3 , had no delusions, no auditory or visual hallucinations, no suicidal ideations or homicidal ideations. We'll start Lexapro 10 mg daily. Medical Problems: Diabetes mellitus Hypertension Hypercholesterolemia CHF Diagnostic Results: Reviewed DSM 5 Symptoms Update: Improving with treatment Medication Change: No Medical Record Reviewed: Yes Mental Status Examination - Cognitive Function Orientation: Person, Place, Situation, Time Memory: Intact Attention: WNL Concentration: WNL Association: WNL Fund of Knowledge: WN Decription of patient's judgement and insights: Fair - Mood Mood: Depressed (Less than before) - Affect Affect: Depressed - Speech Speech: Appropriate - Formal Thought Process Formal Thought Process: No Impairment Psychotic Thoughts and Behaviors: None - Suicidal Ideation Suicidal Ideation: No - Homicidal Ideation Homicidal Ideation: No Goal/Treatment Plan - Goal/Treatment Plan Need for Continued Stay: Remain at risks for inpatient hospitalization, Discharge may exacerbated symptoms, Severe functional impairment Progress Toward Problem(s) and Goals/Treatment Plan: Patient education Supportive therapy Continue treatment as per medicine Cleared psychiatrically with recommendations to have follow-up with outside psychiatrist. - Smoking Cessation Smoking Cessation Initiated: No Reason for not providing: Doesn't smoke cigarettes
--- NOTE | 2017-01-18 20:59 | CP.PCM.CON ---
History of Present Illness - History of Present Illness History of Present Illness: 46 year old male with a history of CAD s/p stent, CHF, HTN, DM, HL, polysubstance abuse, admitted with suicidal ideation and N/V, with leukocytosis. The patient reports to being told his WBC has been elevated for over 2 years. He does admit to subjective fevers and chills which he attributes to heroin withdrawal. He is unsure of any work up related to his elevated WBC. Past medical history: AD s/p stent, CHF, HTN, DM, HL, polysubstance abuse Past surgical history: None Family history: Denies hematologic and oncologic problems Social history: Denies tobacco, alcohol, and illicit drug use. Allergies: NKDA Review of systems: All remaining review of systems including HEENT, cardiovascular, respiratory, gastrointestinal, genitourinary musculoskeletal, dermatologic, neurologic, and psychiatric are negative unless mentioned in the HPI. Past Patient History - Infectious Disease Hx of Infectious Diseases: None - Past Social History Smoking Status: Current Some Days Smoker - CARDIAC Hx Congestive Heart Failure: Yes Hx Hypertension: Yes - PULMONARY Hx Asthma: Yes - NEUROLOGICAL HX Cerebrovascular Accident: No Hx Seizures: No - ENDOCRINE/METABOLIC Hx Diabetes Mellitus Type 1: Yes - HEMATOLOGICAL/ONCOLOGICAL Hx Cancer: No Hx Human Immunodeficiency Virus (HIV): No - MUSCULOSKELETAL/RHEUMATOLOGICAL Hx Falls: No - GENITOURINARY/GYNECOLOGICAL Hx Sexually Transmitted Disorders: No - PSYCHIATRIC Hx Substance Use: Yes - SURGICAL HISTORY Hx Surgeries: No Meds Allergies/Adverse Reactions: Allergies Allergy/AdvReac Type Severity Reaction Status Date / Time cheese Allergy Verified 01/15/17 21:26 shrimp Allergy Verified 01/15/17 21:26 - Medications Medications: Current Medications Aspirin (Aspirin Chewable) 81 mg PO DAILY [facility] Last Admin: 01/18/17 10:36 Dose: 81 mg Clonidine HCl (Catapres) 0.1 mg PO Q6 PRN PRN Reason: opioid withdrawal Last Admin: 01/18/17 05:41 Dose: 0.1 mg Docusate Sodium (Colace) 100 mg PO BID [facility] Last Admin: 01/18/17 17:20 Dose: Not Given Escitalopram Oxalate (Lexapro) 10 mg PO DAILY [facility] Heparin Sodium (Porcine) (Heparin) 5,000 units SC Q12 [facility] Last Admin: 01/18/17 10:34 Dose: 5,000 units Hydralazine HCl (Apresoline) 10 mg IVP Q6H PRN PRN Reason: Systolic Blood Pressure Last Admin: 01/17/17 05:42 Dose: 10 mg Insulin Aspart (Novolog) 0 unit SC [facility] PRN Reason: Protocol Last Admin: 01/18/17 17:19 Dose: Not Given Lisinopril (Zestril) 20 mg PO DAILY [facility] Last Admin: 01/18/17 10:34 Dose: 20 mg Metoprolol Succinate (Toprol Xl) 100 mg PO DAILY [facility] Last Admin: 01/18/17 10:34 Dose: 100 mg Ondansetron HCl (Zofran Inj) 4 mg IVP Q6H PRN PRN Reason: Nausea/Vomiting Last Admin: 01/18/17 12:59 Dose: 4 mg Pantoprazole Sodium (Protonix Inj) 40 mg IVP DAILY [facility] Last Admin: 01/18/17 10:35 Dose: 40 mg Rosuvastatin Calcium (Crestor) 10 mg PO HS [facility] Last Admin: 01/17/17 22:10 Dose: 10 mg Ticagrelor (Brilinta) 90 mg PO DAILY [facility] Last Admin: 01/18/17 10:35 Dose: 90 mg Trazodone HCl (Desyrel) 100 mg PO HS PRN PRN Reason: Insomnia Last Admin: 01/17/17 22:11 Dose: 100 mg Physical Exam - Head Exam Head Exam: ATRAUMATIC - Eye Exam Eye Exam: Normal appearance - ENT Exam ENT Exam: Mucous Membranes Dry - Respiratory Exam Respiratory Exam: NORMAL BREATHING PATTERN - Cardiovascular Exam Cardiovascular Exam: +S1, +S2 - GI/Abdominal Exam GI & Abdominal Exam: Normal Bowel Sounds - Extremities Exam Extremities exam: Positive for: normal inspection - Neurological Exam Neurological exam: Oriented x3 - Psychiatric Exam Psychiatric exam: Depressed - Skin Skin Exam: Warm Results - Vital Signs Recent Vital Signs: Last Vital Signs Temp 98.1 F 01/18/17 15:59 Pulse 78 01/18/17 15:59 Resp 20 01/18/17 15:59 BP 147/74 01/18/17 15:59 Pulse Ox 99 01/18/17 15:59 - Labs Result Diagrams: 01/18/17 07:46 01/18/17 07:46 Labs: Laboratory Results - last 24 hr 01/17/17 01/17/17 01/18/17 07:43 21:27 06:09 WBC RBC Hgb Hct MCV MCH MCHC RDW Plt Count MPV Neut % (Auto) Lymph % (Auto) Hinds % (Auto) Eos % (Auto) Baso % (Auto) Neut # Lymph # Hinds # Eos # Baso # Sodium Potassium Chloride Carbon Dioxide Anion Gap BUN Creatinine Est GFR ( Amer) Est GFR (Non-Af Amer) POC Glucose (mg/dL) 103 125 H Random Glucose Hemoglobin A1c 5.9 Calcium Phosphorus Magnesium Total Bilirubin AST ALT Alkaline Phosphatase Total Protein Albumin Globulin Albumin/Globulin Ratio Procalcitonin 01/18/17 01/18/17 01/18/17 07:46 07:46 11:27 WBC 17.7 H RBC 4.72 Hgb 14.2 Hct 42.2 MCV 89.3 MCH 30.0 MCHC 33.6 RDW 13.3 Plt Count 246 MPV 9.5 Neut % (Auto) 66.8 Lymph % (Auto) 25.2 Hinds % (Auto) 6.7 Eos % (Auto) 0.6 Baso % (Auto) 0.7 Neut # 11.9 H Lymph # 4.5 H Hinds # 1.2 H Eos # 0.1 Baso # 0.1 Sodium 132 Potassium 4.2 Chloride 95 L Carbon Dioxide 25 Anion Gap 17 BUN 8 L Creatinine 0.9 Est GFR ( Amer) > 60 Est GFR (Non-Af Amer) > 60 POC Glucose (mg/dL) 136 H Random Glucose 129 H Hemoglobin A1c Calcium 9.1 Phosphorus 3.5 Magnesium 2.2 Total Bilirubin 1.0 AST 28 ALT 46 Alkaline Phosphatase 77 Total Protein 7.7 Albumin 4.3 Globulin 3.4 Albumin/Globulin Ratio 1.3 Procalcitonin 01/18/17 01/18/17 14:25 16:20 WBC RBC Hgb Hct MCV MCH MCHC RDW Plt Count MPV Neut % (Auto) Lymph % (Auto) Hinds % (Auto) Eos % (Auto) Baso % (Auto) Neut # Lymph # Hinds # Eos # Baso # Sodium Potassium Chloride Carbon Dioxide Anion Gap BUN Creatinine Est GFR ( Amer) Est GFR (Non-Af Amer) POC Glucose (mg/dL) 127 H Random Glucose Hemoglobin A1c Calcium Phosphorus Magnesium Total Bilirubin AST ALT Alkaline Phosphatase Total Protein Albumin Globulin Albumin/Globulin Ratio Procalcitonin < 0.05 L Assessment & Plan (1) Leukocytosis Assessment and Plan: predominant neutrophilia with mild lymphocytosis likely reactive will consider flow cytometery on peripheral blood if absolute lymphocyte count is 5000 Status: Acute (2) Tobacco abuse Assessment and Plan: discussed smoking cessation at length Thank you for this interesting consult. Status: Acute
[2017-01-19 07:24] LABS: BASO # 0.2 K/uL (0.0-0.2); BASO % 0.8 % (0.0-2.0); EOS # 0.2 K/uL (0.0-0.7); EOS % 0.8 % (0.0-4.0); HEMATOCRIT 41.7 % (35.0-51.0); LYMPH # 5.2 K/uL (1.0-4.3); LYMPH % 25.6 % (20.0-40.0); MEAN CELL VOLUME 88.6 fL (80.0-94.0); MEAN CORPUSCULAR HEMOGLOBIN 30.2 pg (27.0-31.0); MONO # 1.2 K/uL (0.0-0.8); RED CELL DISTRIBUTION WIDTH 13.3 % (11.5-14.5); WHITE BLOOD COUNT 20.1 K/uL (4.8-10.8)
--- NOTE | 2017-01-19 07:29 | CP.PCM.PN ---
<HansaTonya - Last Filed: 01/19/17 10:42> Subjective - Date & Time of Evaluation Date of Evaluation: 01/19/17 Time of Evaluation: 07:45 - Subjective Subjective: PGY1 Medicine note for Dr. Read Pt seen and examined at bedside. Nursing reports no adverse event overnight. Today, pt is comfortable and in no acute distress. He states he has been able to eat and drink without vomiting today. He says he was feeling nauseous yesterday, but the zofran resolved his symptoms. His only complaint is some pain in his right thigh, which he says comes and goes and sometimes feels like burning. Pt declined exam of leg. Pt states he no longer feels suicidal and denies hallucinations, racing thoughts or thoughts of homicide. Pt denies headache, dizziness, chest pain, palpitations, shortness of breath, cough, abdominal pain, nausea/vomiting, bowel/bladder complaints or leg swelling. Patient no longer has 1:1 in the room as per psych Objective - Vital Signs/Intake and Output Vital Signs (last 24 hours): Temp Pulse Resp BP Pulse Ox 98.5 F 53 L 20 132/86 96 01/18/17 23:30 01/19/17 04:50 01/18/17 23:30 01/18/17 23:30 01/18/17 23:30 Intake and Output: 01/19/17 01/19/17 06:59 18:59 Intake Total 590 Balance 590 - Medications Medications: Current Medications Aspirin (Aspirin Chewable) 81 mg PO DAILY [facility] Last Admin: 01/18/17 10:36 Dose: 81 mg Clonidine HCl (Catapres) 0.1 mg PO Q6 PRN PRN Reason: opioid withdrawal Last Admin: 01/18/17 05:41 Dose: 0.1 mg Docusate Sodium (Colace) 100 mg PO BID [facility] Last Admin: 01/18/17 17:20 Dose: Not Given Escitalopram Oxalate (Lexapro) 10 mg PO DAILY [facility] Heparin Sodium (Porcine) (Heparin) 5,000 units SC Q12 [facility] Last Admin: 01/18/17 22:23 Dose: 5,000 units Hydralazine HCl (Apresoline) 10 mg IVP Q6H PRN PRN Reason: Systolic Blood Pressure Last Admin: 01/17/17 05:42 Dose: 10 mg Insulin Aspart (Novolog) 0 unit SC [facility]S [facility] PRN Reason: Protocol Last Admin: 01/18/17 22:30 Dose: Not Given Lisinopril (Zestril) 20 mg PO DAILY [facility] Last Admin: 01/18/17 10:34 Dose: 20 mg Metoprolol Succinate (Toprol Xl) 100 mg PO DAILY [facility] Last Admin: 01/18/17 10:34 Dose: 100 mg Ondansetron HCl (Zofran Inj) 4 mg IVP Q6H PRN PRN Reason: Nausea/Vomiting Last Admin: 01/19/17 03:19 Dose: 4 mg Pantoprazole Sodium (Protonix Inj) 40 mg IVP DAILY [facility] Last Admin: 01/18/17 10:35 Dose: 40 mg Rosuvastatin Calcium (Crestor) 10 mg PO HS [facility] Last Admin: 01/18/17 22:22 Dose: 10 mg Ticagrelor (Brilinta) 90 mg PO DAILY [facility] Last Admin: 01/18/17 10:35 Dose: 90 mg Trazodone HCl (Desyrel) 100 mg PO HS PRN PRN Reason: Insomnia Last Admin: 01/18/17 22:21 Dose: 100 mg - Labs Labs: 01/19/17 07:08 01/18/17 07:46 - Constitutional Appears: Non-toxic, No Acute Distress - Head Exam Head Exam: ATRAUMATIC, NORMAL INSPECTION, NORMOCEPHALIC - Eye Exam Eye Exam: Normal appearance. absent: Conjunctival injection, Scleral icterus Pupil Exam: NORMAL ACCOMODATION - ENT Exam ENT Exam: Mucous Membranes Dry - Respiratory Exam Respiratory Exam: Clear to Ausculation Bilateral, NORMAL BREATHING PATTERN. absent: Accessory Muscle Use, Rales, Rhonchi, Wheezes, Respiratory Distress - Cardiovascular Exam Cardiovascular Exam: RRR, +S1, +S2. absent: Murmur - GI/Abdominal Exam GI & Abdominal Exam: Soft, Normal Bowel Sounds. absent: Tenderness - Extremities Exam Extremities Exam: Normal Capillary Refill, Normal Inspection. absent: Pedal Edema - Back Exam Back Exam: NORMAL INSPECTION. absent: rash noted - Neurological Exam Neurological Exam: Alert, Awake, Oriented x3 - Psychiatric Exam Psychiatric exam: Normal Affect, Normal Mood - Skin Skin Exam: Dry, Intact, Normal Color, Warm Assessment and Plan - Assessment and Plan (Free Text) Assessment: 46 year old AA male PMHx of HTN, DM2, CHF, Hypercholesterolemia who presented to the ED on 01/15 with suicidal ideations and later intractable vomiting which has since improved Plan: Intractable nausea and vomiting -Likely secondary to methadone/heroin withdrawal -Protonix 40mg IVP daily -Zofran 4mg IVP Q6H PRN nausea/vomiting -x-ray abdomen: unremarkable Prolonged QT interval on admission -daily EKGs to monitor -likely secondary to methadone -f/u Echo -Dr. Almaraz consulted cardiology Hypokalemia -resolved -K+ 4.2 this AM -monitor Leukocytosis -WBC 20.1 this AM -Post-inflammatory vs dehydration -As per Dr. Morris: flow cytometry on peripheral blood smear if absolute lymphocyte count is 5000 -Lymphocyte count 5.2 this AM -Flagyl 500mg IV Q8 -Dr. Morris heme/onc following Chronic Diastolic CHF -f/u Echo -BNP: 103 -monitor Is and Os -measure daily weights -Lisinopril 20mg po daily -Toprol Xl 100mg po daily -Dr. Almaraz consulted cardiology Hypertension -Lisinopril 20mg po daily -Toprol Xl 100mg po daily -ASA 81mg po daily -Hydralazine 10 IVP Q 6hour PRN SBP>160 -TSH: 0.43 -Free T4: 0.7 -Dr. Almaraz consulted cardiology DM2 -home meds metformin on hold -Accucheck ACHS -RISS low dose -HgbA1c 5.9 Hypercholesterolemia -Crestor 10mg po hs -T -Cholesterol: 223 -LDL: 164 -HDL: 34 Opioid and methadone abuse -Trazodone 100mg po hs -Clonidine 0.1mg po q6 prn -Psych as signed off Depression and anxiety -Brilinta 90mg po daily -Lexapro 10mg po daily -Psych has signed off PPX -SCDs -Heart healthy mod consistent carb diet fluid restricted 1500cc -Protonix 40mg ivp daily -Heparin 5000U SC Q12 -Patient is ambulatory -monitor Is and Os -daily weights -Colace 100mg po bid Plan discussed with Dr. Roro Santo PGY1 <Nic Read - Last Filed: 02/24/17 11:47> Objective - Vital Signs/Intake and Output Vital Signs (last 24 hours): Temp Pulse Resp BP Pulse Ox 98.0 F 77 20 147/64 98 01/20/17 15:49 01/20/17 15:49 01/20/17 15:49 01/20/17 15:49 01/20/17 15:49 - Labs Labs: 01/20/17 07:58 01/20/17 07:58 Attending/Attestation - Attestation I have personally seen and examined this patient.: Yes I have fully participated in the care of the patient.: Yes I have reviewed all pertinent clinical information, including history, physical exam and plan: Yes Notes (Text): Patient Seen and examined with the resident. Agree with the resident's evaluation, assessment and plan. 46 year old AA male PMHx of HTN, DM2, CHF, Hypercholesterolemia who presented to the ED on 01/15 with suicidal ideations and later intractable vomiting which has since improved Intractable nausea and vomiting -Likely secondary to methadone/heroin withdrawal Prolonged QT interval on admission -daily EKGs to monitor -Dr. Almaraz consulted cardiology
[2017-01-19] MEDS: (Novolog) Insulin Aspart, Recombinant 100 u/ml 10 ml vial SC SCH ×4 (07:30→21:42)
[2017-01-19 07:43] LABS: CHLORIDE 98 mmol/L (98-107)
[2017-01-19 07:44] LABS: SODIUM 132 mmol/L (132-148)
[2017-01-19 07:45] LABS: POTASSIUM 4.2 mmol/L (3.6-5.2)
[2017-01-19 07:47] LABS: ALB/GLOB RATIO 1.2 (1.0-2.1); ALKALINE PHOSPHATASE 75 U/L (38-126); ALT/SGPT 44 U/L (21-72); AST/SGOT 30 U/L (17-59); BLOOD UREA NITROGEN 10 mg/dL (9-20); CARBON DIOXIDE 22 mmol/L (22-30); GFR AFRICAN-AMERICAN > 60; GLUCOSE,RANDOM 127 mg/dL (75-110); TOTAL PROTEIN 7.8 g/dL (6.3-8.3)
[2017-01-19 07:48] LABS: CALCIUM 9.1 mg/dl (8.6-10.4)
[2017-01-19] MEDS: Metoprolol Succinate 100 mg XL Tab PO SCH (11:00)
--- NOTE | 2017-01-19 12:43 | CARD ---
APPROVED REPORT EKG Measurement Heart [id number] WI [id number] <Conclusion> Normal sinus rhythm Prolonged QT Abnormal ECG
[2017-01-19] MEDS: metroNIDAZOLE IV 500 mg/100 ml 500 MG/100 ML BAG IVPB SCH ×2 (14:00→21:42)
--- NOTE | 2017-01-19 18:13 | CP.PCM.PN ---
Subjective - Date & Time of Evaluation Date of Evaluation: 01/19/17 Time of Evaluation: 17:00 - Subjective Subjective: Feeling better Flow cytometery sent today Objective - Vital Signs/Intake and Output Vital Signs (last 24 hours): Temp Pulse Resp BP Pulse Ox 98.3 F 66 20 106/68 96 01/19/17 15:00 01/19/17 16:00 01/19/17 15:00 01/19/17 15:00 01/19/17 15:00 Intake and Output: 01/19/17 01/19/17 06:59 18:59 Intake Total 590 Balance 590 - Medications Medications: Current Medications Aspirin (Aspirin Chewable) 81 mg PO DAILY [facility] Last Admin: 01/19/17 11:14 Dose: 81 mg Clonidine HCl (Catapres) 0.1 mg PO Q6 PRN PRN Reason: opioid withdrawal Last Admin: 01/19/17 11:13 Dose: 0.1 mg Docusate Sodium (Colace) 100 mg PO BID [facility] Last Admin: 01/19/17 17:36 Dose: Not Given Escitalopram Oxalate (Lexapro) 10 mg PO DAILY [facility] Last Admin: 01/19/17 11:13 Dose: 10 mg Heparin Sodium (Porcine) (Heparin) 5,000 units SC Q12 [facility] Last Admin: 01/19/17 11:14 Dose: 5,000 units Hydralazine HCl (Apresoline) 10 mg IVP Q6H PRN PRN Reason: Systolic Blood Pressure Last Admin: 01/17/17 05:42 Dose: 10 mg Metronidazole (Flagyl) 500 mg in 100 mls @ 100 mls/hr IVPB Q8 [facility] Last Admin: 01/19/17 14:00 Dose: 100 mls/hr Insulin Aspart (Novolog) 0 unit SC ACHS [facility] PRN Reason: Protocol Last Admin: 01/19/17 16:58 Dose: Not Given Lisinopril (Zestril) 20 mg PO DAILY [facility] Last Admin: 01/19/17 11:22 Dose: 20 mg Metoprolol Succinate (Toprol Xl) 100 mg PO DAILY [facility] Last Admin: 01/19/17 11:00 Dose: 100 mg Ondansetron HCl (Zofran Inj) 4 mg IVP Q6H PRN PRN Reason: Nausea/Vomiting Last Admin: 01/19/17 18:10 Dose: 4 mg Pantoprazole Sodium (Protonix Inj) 40 mg IVP DAILY [facility] Last Admin: 01/19/17 11:21 Dose: 40 mg Rosuvastatin Calcium (Crestor) 10 mg PO HS [facility] Last Admin: 01/18/17 22:22 Dose: 10 mg Ticagrelor (Brilinta) 90 mg PO DAILY [facility] Last Admin: 01/19/17 11:15 Dose: 90 mg Trazodone HCl (Desyrel) 100 mg PO HS PRN PRN Reason: Insomnia Last Admin: 01/18/17 22:21 Dose: 100 mg - Labs Labs: 01/19/17 07:08 01/19/17 07:08 - Head Exam Head Exam: ATRAUMATIC - Eye Exam Eye Exam: Normal appearance - ENT Exam ENT Exam: Mucous Membranes Dry - Respiratory Exam Respiratory Exam: NORMAL BREATHING PATTERN - Cardiovascular Exam Cardiovascular Exam: +S1, +S2 - GI/Abdominal Exam GI & Abdominal Exam: Normal Bowel Sounds - Extremities Exam Extremities Exam: Normal Inspection Assessment and Plan (1) Leukocytosis Assessment & Plan: rule out CLL given ALC > 5000 flow cytometery sent today outpatient f/u Status: Acute (2) Tobacco abuse Assessment & Plan: smoking cessation discussed at length Status: Acute
--- NOTE | 2017-01-19 20:33 | CARD ---
APPROVED REPORT EXAM: Two-dimensional and M-mode echocardiogram with Doppler and color Doppler. Other Information Quality : GoodRhythm : NSR INDICATION Congenital Heart Disease DEPRESSION HERION ABUSE RISK FACTORS Hypertension Hyperlipidemia Diabetes M-Mode DIMENSIONS RVDd2.68 (2.1-3.2cm)Left Atrium (MM)4.00 (2.5-4.0cm) IVSd1.28 (0.7-1.1cm)Aortic Root2.72 (2.2-3.7cm) LVDd5.15 (4.0-5.6cm)Aortic Cusp Exc.2.02 (1.5-2.0cm) PWd1.48 (0.7-1.1cm)FS (%) 36 % LVDs3.30 (2.0-3.8cm)LVEF (%)65 (>50%) Aortic Valve AoV Peak Pddonrgh753.6cm/[place] Peak GR.7mmHg Mitral Valve MV E Medydvyc30.5cm/sMV A Wexzxoba26.9cm/sE/A ratio0.9 TDI E/Lateral E'0.0E/Medial E'0.0 Tricuspid Valve TR Peak Bxnwlfts243iw/sTR Peak Gr.42itUmVWYR39cnAy LEFT VENTRICLE The left ventricle is normal size. There is borderline concentric left ventricular hypertrophy. The left ventricular function is normal. The left ventricular ejection fraction is within the normal range. There is normal LV segmental wall motion. Transmitral Doppler flow pattern is Grade I-abnormal relaxation pattern. RIGHT VENTRICLE The right ventricle is normal size. There is normal right ventricular wall thickness. The right ventricular systolic function is normal. ATRIA The left atrium is borderline dilated. The right atrium size is normal. AORTIC VALVE The aortic valve is normal in structure. No aortic regurgitation is present. MITRAL VALVE The mitral valve is normal in structure. There is no evidence of mitral valve prolapse. TRICUSPID VALVE There is mild pulmonary hypertension. GREAT VESSELS The aortic root is normal in size. The IVC is normal in size and collapses >50% with inspiration. PERICARDIAL EFFUSION There is no pericardial effusion. <Conclusion> The left ventricle is normal size. There is borderline concentric left ventricular hypertrophy. The left ventricular function is normal. The left ventricular ejection fraction is within the normal range. There is normal LV segmental wall motion. Transmitral Doppler flow pattern is Grade I-abnormal relaxation pattern. There is mild pulmonary hypertension.
--- NOTE | 2017-01-20 01:58 | CARD ---
APPROVED REPORT EKG Measurement Heart [id number] [place] [id number] <Conclusion> Normal sinus rhythm Prolonged QT Abnormal ECG
[2017-01-20] MEDS: metroNIDAZOLE IV 500 mg/100 ml 500 MG/100 ML BAG IVPB SCH (06:12)
--- NOTE | 2017-01-20 07:00 | CP.PCM.PN ---
Subjective - Date & Time of Evaluation Date of Evaluation: 01/20/17 Objective - Vital Signs/Intake and Output Vital Signs (last 24 hours): Temp Pulse Resp BP Pulse Ox 98.2 F 61 20 156/85 H 97 01/20/17 03:51 01/20/17 04:13 01/19/17 23:40 01/19/17 23:40 01/19/17 23:40 Intake and Output: 01/20/17 01/20/17 06:59 18:59 Intake Total 550 Balance 550 - Medications Medications: Current Medications Aspirin (Aspirin Chewable) 81 mg PO DAILY [facility] Last Admin: 01/19/17 11:14 Dose: 81 mg Clonidine HCl (Catapres) 0.1 mg PO Q6 PRN PRN Reason: opioid withdrawal Last Admin: 01/19/17 11:13 Dose: 0.1 mg Docusate Sodium (Colace) 100 mg PO BID [facility] Last Admin: 01/19/17 17:36 Dose: Not Given Escitalopram Oxalate (Lexapro) 10 mg PO DAILY [facility] Last Admin: 01/19/17 11:13 Dose: 10 mg Heparin Sodium (Porcine) (Heparin) 5,000 units SC Q12 [facility] Last Admin: 01/19/17 21:41 Dose: 5,000 units Hydralazine HCl (Apresoline) 10 mg IVP Q6H PRN PRN Reason: Systolic Blood Pressure Last Admin: 01/17/17 05:42 Dose: 10 mg Metronidazole (Flagyl) 500 mg in 100 mls @ 100 mls/hr IVPB Q8 [facility] Last Admin: 01/20/17 06:12 Dose: 100 mls/hr Insulin Aspart (Novolog) 0 unit SC ACHS [facility] PRN Reason: Protocol Last Admin: 01/19/17 21:42 Dose: Not Given Lisinopril (Zestril) 20 mg PO DAILY [facility] Last Admin: 01/19/17 11:22 Dose: 20 mg Metoprolol Succinate (Toprol Xl) 100 mg PO DAILY [facility] Last Admin: 01/19/17 11:00 Dose: 100 mg Ondansetron HCl (Zofran Inj) 4 mg IVP Q6H PRN PRN Reason: Nausea/Vomiting Last Admin: 01/19/17 18:10 Dose: 4 mg Pantoprazole Sodium (Protonix Inj) 40 mg IVP DAILY [facility] Last Admin: 01/19/17 11:21 Dose: 40 mg Rosuvastatin Calcium (Crestor) 10 mg PO HS [facility] Last Admin: 01/19/17 21:41 Dose: 10 mg Ticagrelor (Brilinta) 90 mg PO DAILY [facility] Last Admin: 01/19/17 11:15 Dose: 90 mg Trazodone HCl (Desyrel) 100 mg PO HS PRN PRN Reason: Insomnia Last Admin: 01/19/17 21:53 Dose: 100 mg - Labs Labs: 01/19/17 07:08 01/19/17 07:08
[2017-01-20] MEDS: (Novolog) Insulin Aspart, Recombinant 100 u/ml 10 ml vial SC SCH (07:30)
[2017-01-20 08:15] LABS: BASO # 0.1 K/uL (0.0-0.2); BASO % 0.5 % (0.0-2.0); EOS # 0.1 K/uL (0.0-0.7); EOS % 0.5 % (0.0-4.0); HEMATOCRIT 41.6 % (35.0-51.0); LYMPH # 4.5 K/uL (1.0-4.3); LYMPH % 22.1 % (20.0-40.0); MEAN CELL VOLUME 89.8 fL (80.0-94.0); MEAN CORPUSCULAR HEMOGLOBIN 30.1 pg (27.0-31.0); MEAN CORPUSCULAR HGB CONC 33.5 g/dL (33.0-37.0); MEAN PLATELET VOLUME 9.5 fL (7.2-11.7); MONO % 5.1 % (0.0-10.0); RED CELL DISTRIBUTION WIDTH 13.6 % (11.5-14.5); WHITE BLOOD COUNT 20.4 K/uL (4.8-10.8)
[2017-01-20 08:33] LABS: CHLORIDE 98 mmol/L (98-107)
[2017-01-20 08:34] LABS: POTASSIUM 4.2 mmol/L (3.6-5.2); SODIUM 134 mmol/L (132-148)
[2017-01-20 08:36] LABS: GFR AFRICAN-AMERICAN > 60
[2017-01-20 08:37] LABS: ALB/GLOB RATIO 1.2 (1.0-2.1); ALKALINE PHOSPHATASE 79 U/L (38-126); ALT/SGPT 44 U/L (21-72); AST/SGOT 25 U/L (17-59); BILIRUBIN,TOTAL 0.8 mg/dL (0.2-1.3); BLOOD UREA NITROGEN 10 mg/dL (9-20); CARBON DIOXIDE 22 mmol/L (22-30); GLUCOSE,RANDOM 126 mg/dL (75-110); PHOSPHOROUS 3.7 mg/dL (2.5-4.5)
[2017-01-20 08:38] LABS: MAGNESIUM 2.4 mg/dL (1.6-2.3)
[2017-01-20] MEDS: Metoprolol Succinate 100 mg XL Tab PO SCH (09:30)
--- NOTE | 2017-01-20 11:29 | CP.PCM.CON ---
History of Present Illness - History of Present Illness History of Present Illness: 46 year old man with pmx of severe CAD with HOOP MAKER of RCA which was successfully re vascularized, DM, Acclerated HTN, persistent chronic stable angina. He was admitted to [facility] for heroin withdrawl. UDS + Cocaine. He is reporting severe nausea and vomiting this has been occuring since staruday. This is occuring in the context of withdrawl. This is improving with zofran and supportive care. Denies angina or CHF. Review of Systems - Review of Systems All systems: reviewed and no additional remarkable complaints except Review of Systems: + Fatigue, anorexia, nausea Past Patient History - Infectious Disease Hx of Infectious Diseases: None - Past Social History Smoking Status: Current Some Days Smoker - CARDIAC Hx Congestive Heart Failure: Yes Hx Hypertension: Yes - PULMONARY Hx Asthma: Yes - NEUROLOGICAL HX Cerebrovascular Accident: No Hx Seizures: No - ENDOCRINE/METABOLIC Hx Diabetes Mellitus Type 1: Yes - HEMATOLOGICAL/ONCOLOGICAL Hx Cancer: No Hx Human Immunodeficiency Virus (HIV): No - MUSCULOSKELETAL/RHEUMATOLOGICAL Hx Falls: No - GENITOURINARY/GYNECOLOGICAL Hx Sexually Transmitted Disorders: No - PSYCHIATRIC Hx Substance Use: Yes - SURGICAL HISTORY Hx Surgeries: No Meds Allergies/Adverse Reactions: Allergies Allergy/AdvReac Type Severity Reaction Status Date / Time cheese Allergy Verified 01/15/17 21:26 shrimp Allergy Verified 01/15/17 21:26 - Medications Medications: Current Medications Aspirin (Aspirin Chewable) 81 mg PO DAILY [facility] Last Admin: 01/19/17 11:14 Dose: 81 mg Clonidine HCl (Catapres) 0.1 mg PO Q6 PRN PRN Reason: opioid withdrawal Last Admin: 01/20/17 09:30 Dose: 0.1 mg Docusate Sodium (Colace) 100 mg PO BID [facility] Last Admin: 01/20/17 09:30 Dose: 100 mg Escitalopram Oxalate (Lexapro) 10 mg PO DAILY [facility] Last Admin: 01/19/17 11:13 Dose: 10 mg Heparin Sodium (Porcine) (Heparin) 5,000 units SC Q12 [facility] Last Admin: 01/20/17 09:30 Dose: 5,000 units Hydralazine HCl (Apresoline) 10 mg IVP Q6H PRN PRN Reason: Systolic Blood Pressure Last Admin: 01/17/17 05:42 Dose: 10 mg Metronidazole (Flagyl) 500 mg in 100 mls @ 100 mls/hr IVPB Q8 [facility] Last Admin: 01/20/17 06:12 Dose: 100 mls/hr Insulin Aspart (Novolog) 0 unit SC ACHS SAY PRN Reason: Protocol Last Admin: 01/20/17 07:30 Dose: Not Given Lisinopril (Zestril) 20 mg PO DAILY [facility] Last Admin: 01/20/17 09:30 Dose: 20 mg Metoprolol Succinate (Toprol Xl) 100 mg PO DAILY [facility] Last Admin: 01/20/17 09:30 Dose: 100 mg Ondansetron HCl (Zofran Inj) 4 mg IVP Q6H PRN PRN Reason: Nausea/Vomiting Last Admin: 01/20/17 08:04 Dose: 4 mg Pantoprazole Sodium (Protonix Inj) 40 mg IVP DAILY [facility] Last Admin: 01/20/17 09:31 Dose: 40 mg Rosuvastatin Calcium (Crestor) 10 mg PO HS [facility] Last Admin: 01/19/17 21:41 Dose: 10 mg Ticagrelor (Brilinta) 90 mg PO DAILY [facility] Last Admin: 01/19/17 11:15 Dose: 90 mg Trazodone HCl (Desyrel) 100 mg PO HS PRN PRN Reason: Insomnia Last Admin: 01/19/17 21:53 Dose: 100 mg Physical Exam - Constitutional Appears: Well, Non-toxic - Head Exam Head Exam: ATRAUMATIC, NORMAL INSPECTION - Eye Exam Eye Exam: PERRL. absent: Scleral icterus - ENT Exam ENT Exam: Mucous Membranes Moist, Normal External Ear Exam - Neck Exam Neck exam: Positive for: Full Rom. Negative for: Lymphadenopathy, Thyromegaly - Respiratory Exam Respiratory Exam: Clear to Auscultation Bilateral, NORMAL BREATHING PATTERN - Cardiovascular Exam Cardiovascular Exam: REGULAR RHYTHM, RRR, +S1, +S2. absent: JVD - GI/Abdominal Exam GI & Abdominal Exam: Normal Bowel Sounds. absent: Organomegaly - Extremities Exam Extremities exam: Positive for: normal inspection. Negative for: pedal edema - Neurological Exam Neurological exam: CN II-XII Intact, Oriented x3 - Psychiatric Exam Psychiatric exam: Normal Affect, Normal Mood Results - Vital Signs Recent Vital Signs: Last Vital Signs Temp 97.9 F 01/20/17 07:25 Pulse 68 01/20/17 07:30 Resp 20 01/20/17 07:25 BP 164/99 H 01/20/17 07:25 Pulse Ox 97 01/20/17 07:25 - Labs Result Diagrams: 01/20/17 07:58 01/20/17 07:58 Labs: Laboratory Results - last 24 hr 01/19/17 01/19/17 01/19/17 11:44 16:37 21:22 WBC RBC Hgb Hct MCV MCH MCHC RDW Plt Count MPV Neut % (Auto) Lymph % (Auto) [place] % (Auto) Eos % (Auto) Baso % (Auto) Neut # Lymph # [place] # Eos # Baso # Sodium Potassium Chloride Carbon Dioxide Anion Gap BUN Creatinine Est GFR ( Amer) Est GFR (Non-Af Amer) POC Glucose (mg/dL) 130 H 134 H 121 H Random Glucose Calcium Phosphorus Magnesium Total Bilirubin AST ALT Alkaline Phosphatase Total Protein Albumin Globulin Albumin/Globulin Ratio 01/20/17 01/20/17 01/20/17 06:34 07:58 07:58 WBC 20.4 H RBC 4.63 Hgb 14.0 Hct 41.6 MCV 89.8 MCH 30.1 MCHC 33.5 RDW 13.6 Plt Count 270 MPV 9.5 Neut % (Auto) 71.8 Lymph % (Auto) 22.1 [place] % (Auto) 5.1 Eos % (Auto) 0.5 Baso % (Auto) 0.5 Neut # 14.6 H Lymph # 4.5 H [place] # 1.0 H Eos # 0.1 Baso # 0.1 Sodium 134 Potassium 4.2 Chloride 98 Carbon Dioxide 22 Anion Gap 18 BUN 10 Creatinine 1.0 Est GFR ( Amer) > 60 Est GFR (Non-Af Amer) > 60 POC Glucose (mg/dL) 131 H Random Glucose 126 H Calcium 9.0 Phosphorus 3.7 Magnesium 2.4 H Total Bilirubin 0.8 AST 25 ALT 44 Alkaline Phosphatase 79 Total Protein 8.0 Albumin 4.4 Globulin 3.6 Albumin/Globulin Ratio 1.2 - EKG Data EKG Interpreted by: Myself EKG shows normal: Sinus rhythm, ST-T waves (Prolonged QTc) Rate: Normal - Imaging and Cardiology Chest x-ray Status: Image reviewed by me (No infiltrates or effusions) Additional comment: No infiltrates or effusions Assessment & Plan - Assessment and Plan (Free Text) Assessment: 46 year old man with nausea an vomiting due to opioid withdrawal - he is now clean from heroin and methadone. Supportive care as needed. Angina is chronic and stable resume his home isosorbide, continue metoprolol. We discussed at lenght the risk of of using cocaine in the setting of beta blockers. he understands he will and is still desiring to use them for HTN and angina control. HTN is accelerated on lisinopril, toprol. I would switch clonidine for nitrates. Also resume HCTZ ASHD - Dual anti platelet therapy, high dose statin COPD - abuse of tobacco must stop he is still pre contemplative. Prolonged QT - no clinical evidence of polymorphic Vtach , continue to monitor as outpatient. Follow up in my office in one week after he is d/c home. - Date & Time Date: 01/20/17 Time: 11:29
--- NOTE | 2017-01-20 13:40 | CP.PCM.DIS ---
<oTnya Santo - Last Filed: 02/01/17 02:11> Provider - Provider Date of Admission: 01/16/17 00:28 Attending physician: Estephania Sotelo DO Primary care physician: Dr Hernandez Consults: Psychiatry Dr. Almaraz cardiology Dr. Morris heme/onc Time Spent in preparation of Discharge (in minutes): 45 Hospital Course - Lab Results Lab Results: Micro Results 01/18/17 17:00 Urine,Clean Catch Urine Culture - Final No Growth (<1,000 CFU/ML) 01/18/17 18:00 Blood Blood Culture - Preliminary NO GROWTH AFTER 24 HOURS 01/18/17 18:00 Blood Blood Culture - Preliminary NO GROWTH AFTER 24 HOURS Most Recent Lab Values WBC 20.4 K/uL (4.8-10.8) H 01/20/17 07:58 RBC 4.63 Mil/uL (4.40-5.90) 01/20/17 07:58 Hgb 14.0 g/dL (12.0-18.0) 01/20/17 07:58 Hct 41.6 % (35.0-51.0) 01/20/17 07:58 MCV 89.8 fL (80.0-94.0) 01/20/17 07:58 MCH 30.1 pg (27.0-31.0) 01/20/17 07:58 MCHC 33.5 g/dL (33.0-37.0) 01/20/17 07:58 RDW 13.6 % (11.5-14.5) 01/20/17 07:58 Plt Count 270 K/uL (130-400) 01/20/17 07:58 MPV 9.5 fL (7.2-11.7) 01/20/17 07:58 Neut % (Auto) 71.8 % (50.0-75.0) 01/20/17 07:58 Lymph % (Auto) 22.1 % (20.0-40.0) 01/20/17 07:58 [place] % (Auto) 5.1 % (0.0-10.0) 01/20/17 07:58 Eos % (Auto) 0.5 % (0.0-4.0) 01/20/17 07:58 Baso % (Auto) 0.5 % (0.0-2.0) 01/20/17 07:58 Neut # 14.6 K/uL (1.8-7.0) H 01/20/17 07:58 Lymph # 4.5 K/uL (1.0-4.3) H 01/20/17 07:58 Allen # 1.0 K/uL (0.0-0.8) H 01/20/17 07:58 Eos # 0.1 K/uL (0.0-0.7) 01/20/17 07:58 Baso # 0.1 K/uL (0.0-0.2) 01/20/17 07:58 Differential Comment 01/19/17 07:08 Sodium 134 mmol/L (132-148) 01/20/17 07:58 Potassium 4.2 mmol/L (3.6-5.2) 01/20/17 07:58 Chloride 98 mmol/L (98-107) 01/20/17 07:58 Carbon Dioxide 22 mmol/L (22-30) 01/20/17 07:58 Anion Gap 18 (10-20) 01/20/17 07:58 BUN 10 mg/dL (9-20) 01/20/17 07:58 Creatinine 1.0 MG/DL (0.8-1.5) 01/20/17 07:58 Est GFR ( Amer) > 60 01/20/17 07:58 Est GFR (Non-Af Amer) > 60 01/20/17 07:58 POC Glucose (mg/dL) 129 mg/dL (65-110) H 01/20/17 11:44 Random Glucose 126 mg/dL (75-110) H 01/20/17 07:58 Hemoglobin A1c 5.9 % (4.2-6.5) 01/17/17 07:43 Calcium 9.0 mg/dl (8.6-10.4) 01/20/17 07:58 Phosphorus 3.7 mg/dL (2.5-4.5) 01/20/17 07:58 Magnesium 2.4 mg/dL (1.6-2.3) H 01/20/17 07:58 Total Bilirubin 0.8 mg/dL (0.2-1.3) 01/20/17 07:58 AST 25 U/L (17-59) 01/20/17 07:58 ALT 44 U/L (21-72) 01/20/17 07:58 Alkaline Phosphatase 79 U/L (38-126) 01/20/17 07:58 NT-Pro-B Natriuret Pep 103 pg/mL (0-450) 01/15/17 22:19 Total Protein 8.0 g/dL (6.3-8.3) 01/20/17 07:58 Albumin 4.4 g/dL (3.5-5.0) 01/20/17 07:58 Globulin 3.6 gm/dL (2.2-3.9) 01/20/17 07:58 Albumin/Globulin Ratio 1.2 (1.0-2.1) 01/20/17 07:58 Triglycerides 97 mg/dL (0-149) 01/17/17 07:43 Cholesterol 223 mg/dL (0-199) H 01/17/17 07:43 LDL Cholesterol Direct 164 mg/dL (0-129) H 01/17/17 07:43 HDL Cholesterol 34 mg/dL (30-70) 01/17/17 07:43 Amylase 58 U/L (30-110) 01/16/17 11:42 Lipase 59 U/L (23-300) 01/16/17 11:42 Procalcitonin < 0.05 NG/ML (0.19-0.49) L 01/18/17 14:25 Free T4 0.87 ng/dL (0.78-2.19) 01/17/17 07:43 TSH 3rd Generation 0.43 mIU/L (0.46-4.68) L 01/17/17 07:43 Urine Color Yellow (YELLOW) 01/15/17 22:19 Urine Clarity Clear (Clear) 01/15/17 22:19 Urine pH 5.0 (5.0-8.0) 01/15/17 22:19 Ur Specific [place] 1.016 (1.003-1.030) 01/15/17 22:19 Urine Protein Negative mg/dL (NEGATIVE) 01/15/17 22:19 Urine Glucose (UA) Normal mg/dL (Normal) 01/15/17 22:19 Urine Ketones Negative mg/dL (NEGATIVE) 01/15/17 22:19 Urine Blood Negative (NEGATIVE) 01/15/17 22:19 Urine Nitrate Negative (NEGATIVE) 01/15/17 22:19 Urine Bilirubin Negative (NEGATIVE) 01/15/17 22:19 Urine Urobilinogen 2.0 mg/dL (0.2-1.0) 01/15/17 22:19 Ur Leukocyte Esterase Neg Freddy/uL (Negative) 01/15/17 22:19 Urine WBC (Auto) 4 /hpf (0-5) 01/15/17 22:19 Urine RBC (Auto) < 1 /hpf (0-3) 01/15/17 22:19 Ur Squamous Epith Cells 1 /hpf (0-5) 01/15/17 22:19 Urine Opiates Screen Positive (NEGATIVE) 01/15/17 22:19 Urine Methadone Screen Positive (NEGATIVE) 01/15/17 22:19 Ur Barbiturates Screen Negative (NEGATIVE) 01/15/17 22:19 Ur Phencyclidine Scrn Negative (NEGATIVE) 01/15/17 22:19 Ur Amphetamines Screen Negative (NEGATIVE) 01/15/17 22:19 U Benzodiazepines Scrn Negative (NEGATIVE) 01/15/17 22:19 U Oth Cocaine Metabols Positive (NEGATIVE) 01/15/17 22:19 U Cannabinoids Screen Negative (NEGATIVE) 01/15/17 22:19 Alcohol, Quantitative < 10 mg/dl (0-10) 01/15/17 22:19 - Hospital Course Hospital Course: Upon Admission 46 year old AA male PMHx of HTN, DM2, CHF, Hypercholesterolemia who presented to the ED on 01/15 with suicidal ideations. Patient reported feeling suicidal as he was unable to satisfy his . He also complained of nausea and vomiting over the past 2 days. He stated he has been vomiting mostly yellow liquid and food for the past 2 days ~4times/day and when he was admitted to [facility] [place] he has been having bilious nonbloody emesis all morning ~4 to 5 times. He denies any diarrhea but also reports he has been constipated for 2 days. He is complaining of intermittent abdominal pain in the middle of his abdomen that also started 2 days ago. He describes it as dull and cramping. He also complaints of some lightheadedness, chills, diaphoresis, and a burning pain in his Right thigh that comes and goes. Patient denied any acute chest pain, palpitations, SOB, cough, swelling of his legs b/l, sick contacts, recent travel. Patient reported that he was using methadone up to 150mg 1 months ago and he stopped it suddenly without tapering it off as he misunderstood his medical record coder's recommendations as he was having prolonged QT interval. Patient reported that he started taking 100mg methadone again 1 week ago and was also snorting 10bags/day of heroin. His last use of heroin and methadone was the day of admission where he snorted 6 bags heroin. Patient states he has been using a combination fo methadone and heroin for months. Patient also disclosed he has been following Dr. Toro in [facility] for his CHF. He states in Jul 2015 he was unable to even complete a stress test due to "blocked arteries" and he had a cardiac cath done and a stent placed in January 2016. Patient was transferred to [facility] from Psych floor due to the QT prolongation on his EKG and intracatble vomiting. Patient's emesis was deemed likely secondary to methadone/heroin withdrawal. X-ray abdomen was unremarkable. Daily EKGs monitored the QT interval and his electrolyte abnormality of hypokalemia resolved. Dr Almaraz was consulted for his chronic diastolic CHF and HTN and Dr. Morris was consulted for luekocytosis and a flow cytometry was done on peripheral blood smear which was to be followed up outpatient. Patient clinically improved during hospital course and was deemed medically stable for discharge on day of discharge. 1)Intractable nausea and vomiting: resolved- Likely secondary to methadone/ heroin withdrawal 2) Prolonged QT on admission: resolved- Likely secondary to methadone abuse 3) Hypokalemia: resolved 4) Leukocytosis: to f/u outpatient with Dr. Morris 5) Chronic diastolic CHF: f/u Echo outpatient and with Dr. Almaraz 6) Hypertension: continue meds upon discharge 7) DM2: continue meds upon discharge 8) Hypercholesterolemia: continue meds upon discharge 9) Opioid and methadone abuse: follow up with [facility] 10) Depression and anxiety: follow up with [facility] Upon Discharge Patient stable for discharge home as per Dr. Read Patient to take medications as prescribed: -Lisinopril 20mg po daily Disp#30 -Atorvastatin 40mg po daily Disp#30 -Trazodone 100mg po qhs Disp#30 -Brilinta 90mg po daily Disp#30 -Toprol XL 100mg po daily Disp#30 -Imdur 30mg po daily Disp#30 -HCTZ 25mg po daily Disp#30 -Lexapro 10mg po daily Disp#30 Patient strongly advised to abstain from cocaine, heroin, and methadone abuse. Patient to follow up with PMD Dr. Hernandez in 7 days. Patient to follow up with outpatient psychiatry within 7 days. Patient to also follow up with Cardiology Dr. Almaraz within 10 days. Patient to also follow up with Dr. Alexandra ortega/oncologist within 14 days. If symptoms persist or worsen patient to visit ER immediately. Instructions discussed in detail with patient who understands and agrees. Discharge Exam - Head Exam Head Exam: ATRAUMATIC, NORMAL INSPECTION - Eye Exam Eye Exam: EOMI, Normal appearance, PERRL. absent: Conjunctival injection, Scleral icterus Pupil Exam: NORMAL ACCOMODATION - ENT Exam ENT Exam: Mucous Membranes Moist - Neck Exam Neck exam: Full Rom, Normal Inspection - Respiratory Exam Respiratory Exam: Clear to PA & Lateral, NORMAL BREATHING PATTERN, UNREMARKABLE. absent: Accessory Muscle Use, Rales, Rhonchi, Wheezes, Respiratory Distress - Cardiovascular Exam Cardiovascular Exam: REGULAR RHYTHM, RRR, +S1, +S2. absent: Systolic Murmur - GI/Abdominal Exam GI & Abdominal Exam: Normal Bowel Sounds, Soft. absent: Firm, Guarding, Rigid, Tenderness - Extremities Exam Extremities exam: normal capillary refill, normal inspection, pedal pulses present - Back Exam Back exam: NORMAL INSPECTION. absent: CVA tenderness (L), CVA tenderness (R), rash noted, tenderness - Neurological Exam Neurological exam: Alert, CN II-XII Intact, Oriented x3 - Psychiatric Exam Psychiatric exam: Anxious, Depressed - Skin Skin Exam: Dry, Intact, Normal Color, Warm Discharge Plan - Discharge Medications Prescriptions: Aspirin [Aspirin Chewable] 81 mg PO DAILY #30 Atorvastatin [Lipitor] 1 tab PO HS #30 Escitalopram [Lexapro] 10 mg PO DAILY #30 tab hydroCHLOROthiazide [Hydrodiuril] 25 mg PO DAILY #30 tab Isosorbide Mononitrate [Imdur] 30 mg PO DAILY #30 tab Lisinopril [Zestril] 20 mg PO DAILY #30 Metoprolol Succinate [Toprol XL] 100 mg PO DAILY #30 tab Ticagrelor [Brilinta] 90 mg PO DAILY #30 tab traZODone [Desyrel] 100 mg PO HS PRN #30 tab PRN Reason: Insomnia - Follow Up Plan Condition: STABLE Disposition: HOME/ ROUTINE Instructions: Metoprolol (By mouth), Lisinopril (By mouth), Hydrochlorothiazide (By mouth), Trazodone (By mouth), Aspirin (By mouth), Isosorbide Mononitrate (By mouth), Atorvastatin (By mouth), Ticagrelor (By mouth ), Heart Failure (DC), How to Stop Smoking (DC), Heart Healthy Diet (DC), Leukocytosis (DC), Leukocytosis (GEN) Additional Instructions: Patient stable for discharge home as per Dr. Read Patient to take medications as prescribed: -Lisinopril 20mg po daily Disp#30 -Atorvastatin 40mg po daily Disp#30 -Trazodone 100mg po qhs Disp#30 -Brilinta 90mg po daily Disp#30 -Toprol XL 100mg po daily Disp#30 -Imdur 30mg po daily Disp#30 -HCTZ 25mg po daily Disp#30 -Lexapro 10mg po daily Disp#30 Patient strongly advised to abstain from cocaine, heroin, and methadone abuse. Patient to follow up with PMD Dr. Hernandez in 7 days. Patient to follow up with outpatient psychiatry within 7 days. Patient to also follow up with Cardiology Dr. Almaraz within 10 days. Patient to also follow up with Dr. Alexandra ortega/oncologist within 14 days. If symptoms persist or worsen patient to visit ER immediately. Instructions discussed in detail with patient who understands and agrees. Referrals: Emigdio Morris MD [Staff Provider] - Anthony Almaraz MD [Staff Provider] - <Nic Read - Last Filed: 02/25/17 12:13> Provider - Provider Date of Admission: 01/16/17 00:28 Attending physician: Estephania Sotelo DO Hospital Course - Lab Results Lab Results: Micro Results 01/18/17 18:00 Blood Blood Culture - Final NO GROWTH AFTER 5 DAYS 01/18/17 18:00 Blood Gram Stain - Final TEST NOT PERFORMED 01/18/17 18:00 Blood Blood Culture - Final NO GROWTH AFTER 5 DAYS 01/18/17 18:00 Blood Gram Stain - Final 01/18/17 17:00 Urine,Clean Catch Urine Culture - Final No Growth (<1,000 CFU/ML) Most Recent Lab Values WBC 20.4 K/uL (4.8-10.8) H 01/20/17 07:58 RBC 4.63 Mil/uL (4.40-5.90) 01/20/17 07:58 Hgb 14.0 g/dL (12.0-18.0) 01/20/17 07:58 Hct 41.6 % (35.0-51.0) 01/20/17 07:58 MCV 89.8 fL (80.0-94.0) 01/20/17 07:58 MCH 30.1 pg (27.0-31.0) 01/20/17 07:58 MCHC 33.5 g/dL (33.0-37.0) 01/20/17 07:58 RDW 13.6 % (11.5-14.5) 01/20/17 07:58 Plt Count 270 K/uL (130-400) 01/20/17 07:58 MPV 9.5 fL (7.2-11.7) 01/20/17 07:58 Neut % (Auto) 71.8 % (50.0-75.0) 01/20/17 07:58 Lymph % (Auto) 22.1 % (20.0-40.0) 01/20/17 07:58 Allen % (Auto) 5.1 % (0.0-10.0) 01/20/17 07:58 Eos % (Auto) 0.5 % (0.0-4.0) 01/20/17 07:58 Baso % (Auto) 0.5 % (0.0-2.0) 01/20/17 07:58 Neut # 14.6 K/uL (1.8-7.0) H 01/20/17 07:58 Lymph # 4.5 K/uL (1.0-4.3) H 01/20/17 07:58 Allen # 1.0 K/uL (0.0-0.8) H 01/20/17 07:58 Eos # 0.1 K/uL (0.0-0.7) 01/20/17 07:58 Baso # 0.1 K/uL (0.0-0.2) 01/20/17 07:58 Differential Comment 01/19/17 07:08 Sodium 134 mmol/L (132-148) 01/20/17 07:58 Potassium 4.2 mmol/L (3.6-5.2) 01/20/17 07:58 Chloride 98 mmol/L (98-107) 01/20/17 07:58 Carbon Dioxide 22 mmol/L (22-30) 01/20/17 07:58 Anion Gap 18 (10-20) 01/20/17 07:58 BUN 10 mg/dL (9-20) 01/20/17 07:58 Creatinine 1.0 MG/DL (0.8-1.5) 01/20/17 07:58 Est GFR ( Amer) > 60 01/20/17 07:58 Est GFR (Non-Af Amer) > 60 01/20/17 07:58 POC Glucose (mg/dL) 129 mg/dL (65-110) H 01/20/17 11:44 Random Glucose 126 mg/dL (75-110) H 01/20/17 07:58 Hemoglobin A1c 5.9 % (4.2-6.5) 01/17/17 07:43 Calcium 9.0 mg/dl (8.6-10.4) 01/20/17 07:58 Phosphorus 3.7 mg/dL (2.5-4.5) 01/20/17 07:58 Magnesium 2.4 mg/dL (1.6-2.3) H 01/20/17 07:58 Total Bilirubin 0.8 mg/dL (0.2-1.3) 01/20/17 07:58 AST 25 U/L (17-59) 01/20/17 07:58 ALT 44 U/L (21-72) 01/20/17 07:58 Alkaline Phosphatase 79 U/L (38-126) 01/20/17 07:58 NT-Pro-B Natriuret Pep 103 pg/mL (0-450) 01/15/17 22:19 Total Protein 8.0 g/dL (6.3-8.3) 01/20/17 07:58 Albumin 4.4 g/dL (3.5-5.0) 01/20/17 07:58 Globulin 3.6 gm/dL (2.2-3.9) 01/20/17 07:58 Albumin/Globulin Ratio 1.2 (1.0-2.1) 01/20/17 07:58 Triglycerides 97 mg/dL (0-149) 01/17/17 07:43 Cholesterol 223 mg/dL (0-199) H 01/17/17 07:43 LDL Cholesterol Direct 164 mg/dL (0-129) H 01/17/17 07:43 HDL Cholesterol 34 mg/dL (30-70) 01/17/17 07:43 Amylase 58 U/L (30-110) 01/16/17 11:42 Lipase 59 U/L (23-300) 01/16/17 11:42 Procalcitonin < 0.05 NG/ML (0.19-0.49) L 01/18/17 14:25 Free T4 0.87 ng/dL (0.78-2.19) 01/17/17 07:43 TSH 3rd Generation 0.43 mIU/L (0.46-4.68) L 01/17/17 07:43 Urine Color Yellow (YELLOW) 01/15/17 22:19 Urine Clarity Clear (Clear) 01/15/17 22:19 Urine pH 5.0 (5.0-8.0) 01/15/17 22:19 Ur Specific [place] 1.016 (1.003-1.030) 01/15/17 22:19 Urine Protein Negative mg/dL (NEGATIVE) 01/15/17 22:19 Urine Glucose (UA) Normal mg/dL (Normal) 01/15/17 22:19 Urine Ketones Negative mg/dL (NEGATIVE) 01/15/17 22:19 Urine Blood Negative (NEGATIVE) 01/15/17 22:19 Urine Nitrate Negative (NEGATIVE) 01/15/17 22:19 Urine Bilirubin Negative (NEGATIVE) 01/15/17 22:19 Urine Urobilinogen 2.0 mg/dL (0.2-1.0) 01/15/17 22:19 Ur Leukocyte Esterase Neg Freddy/uL (Negative) 01/15/17 22:19 Urine WBC (Auto) 4 /hpf (0-5) 01/15/17 22:19 Urine RBC (Auto) < 1 /hpf (0-3) 01/15/17 22:19 Ur Squamous Epith Cells 1 /hpf (0-5) 01/15/17 22:19 Urine Opiates Screen Positive (NEGATIVE) 01/15/17 22:19 Urine Methadone Screen Positive (NEGATIVE) 01/15/17 22:19 Ur Barbiturates Screen Negative (NEGATIVE) 01/15/17 22:19 Ur Phencyclidine Scrn Negative (NEGATIVE) 01/15/17 22:19 Ur Amphetamines Screen Negative (NEGATIVE) 01/15/17 22:19 U Benzodiazepines Scrn Negative (NEGATIVE) 01/15/17 22:19 U Oth Cocaine Metabols Positive (NEGATIVE) 01/15/17 22:19 U Cannabinoids Screen Negative (NEGATIVE) 01/15/17 22:19 Alcohol, Quantitative < 10 mg/dl (0-10) 01/15/17 22:19 Attending/Attestation - Attestation I have personally seen and examined this patient.: Yes I have fully participated in the care of the patient.: Yes I have reviewed all pertinent clinical information, including history, physical exam and plan: Yes Notes (Text): Patient Seen and examined with the resident. Agree with the resident's evaluation, assessment and plan. 1)Intractable nausea and vomiting: resolved- Likely secondary to methadone/ heroin withdrawal 2) Prolonged QT on admission: resolved- Likely secondary to methadone abuse 3) Hypokalemia: resolved 4) Leukocytosis: to f/u outpatient with Dr. Morris 5) Chronic diastolic CHF: f/u Echo outpatient and with Dr. Almaraz
[2017-01-20 15:58] VITALS: BP 147/64; PULSE 77; TEMP 98; O2SAT 98
--- NOTE | 2017-01-24 21:43 | CARD ---
APPROVED REPORT EKG Measurement Heart [id number] <Conclusion> Normal sinus rhythm with sinus arrhythmia Normal ECG
== END 2017-01-20 15:10 | disposition home or self-care (01) | DRG 744 ==
LOC: C.ER 20:51 → C.5E 01-16 00:28 → C.6T 01-16 14:22
PROVIDERS: ATTEND Hospitalist
DX: F11.23 Opioid dependence with withdrawal (principal); I11.0 Hypertensive heart disease with heart failure; R45.851 Suicidal ideations; I50.32 Chronic diastolic (congestive) heart failure; F32.9 Major depressive disorder, single episode, unspecified; E11.9 Type 2 diabetes mellitus without complications; D72.820 Lymphocytosis (symptomatic); J44.9 Chronic obstructive pulmonary disease, unspecified; E87.6 Hypokalemia; I25.118 Atherosclerotic heart disease of native coronary artery with other forms of angina pectoris; F14.90 Cocaine use, unspecified, uncomplicated; J45.909 Unspecified asthma, uncomplicated; E78.00 Pure hypercholesterolemia, unspecified; E78.5 Hyperlipidemia, unspecified; F17.210 Nicotine dependence, cigarettes, uncomplicated; K59.00 Constipation, unspecified; Z95.5 Presence of coronary angioplasty implant and graft; Z79.4 Long term (current) use of insulin